=== PATIENT | female | born 2000 | race African-American/Black ===

== ENCOUNTER 2021-04-06 15:18 | Outpatient (REF) | payer OTHER, SELFPAY | END 2021-04-06 15:19 | disposition home or self-care (01) | LOC: HO.LNP 15:18 | PROVIDERS: Visit Provider Physician Assistant | DX: J02.8 Acute pharyngitis due to other specified organisms (principal); B96.89 Other specified bacterial agents as the cause of diseases classified elsewhere | CPT/HCPCS: 87071; 87147 ==

== ENCOUNTER 2021-04-08 15:34 | Emergency (ER) | payer OTHER, SELFPAY | END 2021-04-08 17:32 | disposition left against medical advice (07) | PROVIDERS: Emergency Provider Emergency Medicine | DX: R69 Illness, unspecified (principal) ==

== ENCOUNTER 2021-06-14 16:37 | Emergency (ER) | payer OTHER, SELFPAY ==
[2021-06-14] VITALS (10 sets, daily range): BP systolic 93–152; BP diastolic 50–90; PULSE 67–108; RESP 14–20; TEMP 36.3–37; O2SAT 97–100; BMI 26.2
--- NOTE | ~2021-06-14 | US_ITS ---
EXAMINATION: US OBSTETRICAL ULTRASOUND CLINICAL INFORMATION: Abdominal pain, vaginal bleeding and history of about 4 days ago. Evaluate for retained products of conception. COMPARISON: None. LMP: Unknown. TECHNIQUE: Transabdominal and transvaginal images were obtained utilizing grayscale and color Doppler. FINDINGS: Evaluation is limited secondary to patient's pain. There is an intrauterine gestational sac with a pole but not detected heart rate. A detailed obstetric examination was not obtained. No subchorionic bleed. The cervical region was not assessed by the sterile processing technician. The maternal left ovary was not visualized. The right ovary measures 2.9 x 1.3 x 1.1 cm with preserved flow on color Doppler and normal morphology. Small amount of free fluid. US/US OB pelvic and transvaginal IMPRESSION: Intrauterine gestational sac with a pole. A heart rate was not detected in this examination however, a detailed obstetrical evaluation with measurement of the crown-rump length was not obtained and the age of this remains uncertain. Recommend correlation with quantitative hCG and a short-term follow-up to ensure viability of the . This result was discussed with Kelsie Soria NP at 06/14/2021 7:39 PM and it was ascertained that the content of the report was understood at the time of direct communication.
--- NOTE | ~2021-06-14 | US_ITS ---
EXAMINATION: INTRAOPERATIVE ULTRASOUND CLINICAL INFORMATION: Dilatation and curettage. COMPARISON: Pelvic ultrasound done earlier on same day. TECHNIQUE: Intraoperative images. US/US OB limited FINDINGS/IMPRESSION: Ultrasound guidance was provided for a dilatation and curettage in the OR performed by Dr. Galen Jarrell. A radiologist was not present during the procedure. Please refer to the intraoperative report for additional details.
--- NOTE | 2021-06-14 17:14 | ED.FEMALEGU ---
HPI - Female Genitourinary General Chief complaint: Vaginal Bleeding Stated complaint: vaginal bleed Time Seen by Provider: 06/14/21 16:53 Source: patient Mode of arrival: ambulatory Limitations: no limitations History of Present Illness HPI Narrative: This is a 20 yo f A3 presenting to ed with severe lower abdominal [place] and vaginal bleeding X4 days. Patient tells me that she recently terminated within medications she took mifepristone PO. Since then she has been spotting however the past few days she has been passing thick clots that are bright red. This has never happened to her before she tells me. She reports going through 2 pads per hour over the past 4 days. She reports severe lower abdominal pain that is diffuse. She denies nausea, vomiting, dizziness, headache, vision changes, weakness, chest pain, shortness of breath, fevers, chills. She tells me she does not think this is her typical menses as her menses is typically pain-free. She has some suspicion for STDs/STIs. Would like to get tested today. No history of STD/STI. MD elicited complaint: vaginal bleeding Pertinent past history: other (Recent medical induced ) Onset (ago): day(s) (4) Location of symptoms: suprapubic, LLQ and RLQ Severity: severe Female Urogenital Radiation: Non-Radiating Severity scale (1-10): >10 Quality of pain: cramping Consistency: constant Vaginal discharge: none Vaginal bleeding: heavy, bright red, clots and # pads per hour (2) Exacerbating factors: none Relieving factors: none Associated symptoms: abdominal pain Treatment prior to arrival: none Sexual activity: Yes Related Data Previous Rx's Medication Instructions Recorded amoxicillin 500 mg capsule 500 mg PO TID 7 Days #21 cap 04/06/21 ibuprofen 600 mg tablet 600 mg PO TID 7 Days #21 tab 04/06/21 Allergies Allergy/AdvReac Type Severity Reaction Status Date / Time No Known Allergies Allergy Verified 06/14/21 21:09 Review of Systems Review of Systems: Constitutional : No Fever, No Chills ENT/Mouth : No sore throat, No Rhinorrhea Eyes: No Eye Pain, No Redness Cardiovascular : No Chest Pain, No SOB Respiratory : No Cough, No Sputum, No Wheezing Gastrointestinal : positive Nausea, No Vomiting, No Diarrhea, positive abdominal pain, Genitourinary : positive irregular bleeding, No Dysuria, No Urinary Frequency, positive pelvic pain Musculoskeletal : No Myalgias Skin : No rash Neuro : No Weakness, No Headache Psych : No Anxiety/Panic, No Depression Heme/Lymph: No bruising, No Lymphadenopathy Endocrine : No Polyuria, No Polydipsia All other systems reviewed and are negative Yes all other systems are reviewed and are negative [facility] Past Medical History Attestation statement: The following information was validated with the patient. Source: old records reviewed and nursing notes reviewed Medical History Arthralgia Blurred vision, bilateral Family history of systemic lupus erythematosus (SLE) in mother History of Hx of one miscarriage Family History Family History Mother SLE (systemic lupus erythematosus) Depression Social History Social History Alcohol intake: current Alcohol intake frequency: does not drink Patient Tobacco Use Status: Never used Tobacco Use of substances other than those prescribed or required for medical reasons: Yes Substance Use Type: Marijuana Substance Use Frequency: Daily Advance Directives: No Advance Directives Information Provided: No Physical Exam Vital Signs: Vital Signs: Last Vital Signs Temp 98.6 F 06/14/21 21:06 Pulse 81 06/14/21 21:06 Resp 20 06/14/21 21:06 BP 120/71 06/14/21 21:06 Pulse Ox 100 06/14/21 21:06 BMI result Body Mass Index 26.2 VSS Appearance: Alert.? Oriented X3.? No acute distress.? Head: Normocephalic, atraumatic, no step-offs or deformities Eyes: Pupils equal, round and reactive to light.? ENT: Pharynx normal.? Neck: Normal inspection.? Neck supple.? CVS: Normal heart rate and rhythm.? Pulses normal.? Respiratory: No respiratory distress.? Breath sounds normal.? Abdomen: Soft and + tender to LLQ,RLQ and suprapubic area.? No signs of acute abdomen Skin: Skin warm and dry.? Normal skin color.? Normal skin turgor.? Sensative: + heavy vaginal bleeding bright red, closed cervical os, cervical motion tenderness, no vaginal discharge, no POC noted. Bilateral adenexal tenderness Extremities: No lower extremity edema.? No calf ttp. 5/5 strength to bilateral upper and lower extremities Back: No midline tenderness, no C-spine tenderness, full range of motion, no CVA tenderness bilaterally Neuro: Oriented X 3.? No motor deficit.? No sensory deficit. CN 2-12 intact Course Reevaluation(s) Reevaluation #1: Patient still reports pain despite the 4 mg of morphine. She is noted to be hypotensive, fluids have been given at this time. Type and screen is done and ready in case needed. H&H appears to be low however no need for transfusion at this time. Patient has been bleeding throughout her stay here. She has got about 3-4 pads. She reports that she feels weak. I spoke to OBGYN who will be comming in to do a suction D&C. I also spoke with Radiology who discussed critical results with me. These results were made cleared OBGYN. I educated patient on the circumstances, she has no questions. She agrees to proceed with suction D&C. Patient will be given Dilaudid for pain. Time: 20:38 Reevaluation #2: 200 mg po doxycycline ordered at this time per order of Time: 21:13 Reevaluation #3: Patient brought to short-stay surgery. MDM - Female Genitourinary MDM Narrative Medical decision making narrative: 0 20 yo female presents with menorrhagia, and lower abdominal pain severe. Patient had a medical induced May 18. Has been spotting since then however now reports heavy bleeding for the past 4 days. Physical examination significant for heavy vaginal bleeding bright red, closed cervical os, cervical motion tendernss, no vaginal discharge, no POC noted. Patient has pain to palpation to lower abdomen. Patient noted to be hypotensive however this appears to be her baseline per patient. Unlikely appendicitis. Plan labs, imaging. Will hold on antibiotics for now as there is no source of infection. Medical Records Attestation: I reviewed the patient's medical records. Lab Data Attestation: I reviewed the patient's lab results. Result diagrams: 06/14/21 18:23 06/14/21 18:23 Labs: Lab Results 06/14/21 06/14/21 06/14/21 Range/Units 17:38 18:23 18:23 WBC 6.5 (4.8-10.8) X10*3/uL RBC 3.67 L (4.20-5.50) X10*6/uL Hgb 10.8 L (12.0-16.0) g/dl Hct 31.6 L (37.0-47.0) % MCV 86.1 (80.0-98.0) fL MCH 29.4 (27.0-33.0) pg MCHC 34.2 (31.0-35.0) g/dl RDW 12.2 (11.0-16.0) % Plt Count 224 (160-400) X10*3/uL MPV 10.1 (9.4-12.3) fL Immature Gran % (Auto) 0.5 H (0.0-0.4) % Neut % (Auto) 69.3 (45-73) % Lymph % (Auto) 25.3 (20-40) % [place] % (Auto) 4.4 (2-11) % Eos % (Auto) 0.3 (0-4) % Baso % (Auto) 0.2 (0-2) % Lymph # (Auto) 1.7 (1.2-4.9) X10*3/uL [place] # (Auto) 0.3 (0.1-1.2) X10*3/uL Eos # (Auto) 0.0 (0.0-0.4) X10*3/uL Baso # (Auto) 0.0 (0.0-0.2) X10*3/uL Abs Immat Gran (auto) 0.03 (0.00-0.03) X10*3/uL Absolute Neuts (auto) 4.5 (2.0-8.3) x10*3/uL Absolute Nucleated RBC 0.000 (0.0-0.012) X10*3/uL Nucleated RBC % (auto) 0.0 (0.0-0.2) /100WBC PT (9.9-13.0) SEC INR (0.9-1.1) Sodium 140 (135-145) mmol/L Potassium 4.2 (3.3-5.1) mmol/L Chloride 108 (96-108) mmol/L Carbon Dioxide 25 (22-29) mmol/L Anion Gap 11 L (12-20) BUN 17 H (9-16) mg/dL Creatinine 0.63 (0.5-1.4) mg/dL Estim Creat Clear Calc 119.2 Estimated GFR > 60 Random Glucose 84 (60-115) mg/dL Lactic Acid (0.5-2.0) mmol/L Calcium 9.4 (8.4-10.2) mg/dL Magnesium 2.0 (1.6-2.6) mg/dL Total Bilirubin 0.4 (0.0-1.0) mg/dL AST 13 (5-31) U/L ALT 9 (0-31) U/L Alkaline Phosphatase 59 (39-117) U/L Total Protein 7.1 (6.5-8.0) g/dL Albumin 4.3 (3.5-5.0) g/dL Beta HCG, Quant mIU/mL Urine Color Urine Appearance Urine pH (5.0-8.0) Ur Specific [place] (1.005-1.025) Urine Protein (NEG-TRACE) MG/DL Urine Glucose (UA) (NEG) MG/DL Urine Ketones (NEG) MG/DL Urine Blood (NEG) Urine Nitrite (NEG) Ur Leukocyte Esterase (NEG) Urine RBC (0) /HPF Urine WBC (0-4) /HPF Ur Squamous Epith Cells /LPF Urine Bacteria /LPF Urine Mucus /LPF COVID-19 ([facility]) Negative (Negative) COVID-19 Clin Com See Note Blood Type Antibody Screen 06/14/21 06/14/21 06/14/21 Range/Units 18:23 18:38 19:13 WBC (4.8-10.8) X10*3/uL RBC (4.20-5.50) X10*6/uL Hgb (12.0-16.0) g/dl Hct (37.0-47.0) % MCV (80.0-98.0) fL MCH (27.0-33.0) pg MCHC (31.0-35.0) g/dl RDW (11.0-16.0) % Plt Count (160-400) X10*3/uL MPV (9.4-12.3) fL Immature Gran % (Auto) (0.0-0.4) % Neut % (Auto) (45-73) % Lymph % (Auto) (20-40) % [place] % (Auto) (2-11) % Eos % (Auto) (0-4) % Baso % (Auto) (0-2) % Lymph # (Auto) (1.2-4.9) X10*3/uL [place] # (Auto) (0.1-1.2) X10*3/uL Eos # (Auto) (0.0-0.4) X10*3/uL Baso # (Auto) (0.0-0.2) X10*3/uL Abs Immat Gran (auto) (0.00-0.03) X10*3/uL Absolute Neuts (auto) (2.0-8.3) x10*3/uL Absolute Nucleated RBC (0.0-0.012) X10*3/uL Nucleated RBC % (auto) (0.0-0.2) /100WBC PT (9.9-13.0) SEC INR (0.9-1.1) Sodium (135-145) mmol/L Potassium (3.3-5.1) mmol/L Chloride (96-108) mmol/L Carbon Dioxide (22-29) mmol/L Anion Gap (12-20) BUN (9-16) mg/dL Creatinine (0.5-1.4) mg/dL Estim Creat Clear Calc Estimated GFR Random Glucose (60-115) mg/dL Lactic Acid (0.5-2.0) mmol/L Calcium (8.4-10.2) mg/dL Magnesium (1.6-2.6) mg/dL Total Bilirubin (0.0-1.0) mg/dL AST (5-31) U/L ALT (0-31) U/L Alkaline Phosphatase (39-117) U/L Total Protein (6.5-8.0) g/dL Albumin (3.5-5.0) g/dL Beta HCG, Quant 481 mIU/mL Urine Color RED A Urine Appearance CLOUDY Urine pH 6.0 (5.0-8.0) Ur Specific [place] >= 1.030 H (1.005-1.025) Urine Protein 2+ H (NEG-TRACE) MG/DL Urine Glucose (UA) NEG (NEG) MG/DL Urine Ketones 15 (NEG) MG/DL Urine Blood 3+ H (NEG) Urine Nitrite NEG (NEG) Ur Leukocyte Esterase TRACE H (NEG) Urine RBC 50-75 H (0) /HPF Urine WBC 1-4 (0-4) /HPF Ur Squamous Epith Cells TRACE /LPF Urine Bacteria TRACE /LPF Urine Mucus TRACE /LPF COVID-19 ([facility]) (Negative) COVID-19 Clin Com Blood Type B Positive Antibody Screen NEGATIVE 06/14/21 06/14/21 Range/Units 20:25 20:25 WBC (4.8-10.8) X10*3/uL RBC (4.20-5.50) X10*6/uL Hgb (12.0-16.0) g/dl Hct (37.0-47.0) % MCV (80.0-98.0) fL MCH (27.0-33.0) pg MCHC (31.0-35.0) g/dl RDW (11.0-16.0) % Plt Count (160-400) X10*3/uL MPV (9.4-12.3) fL Immature Gran % (Auto) (0.0-0.4) % Neut % (Auto) (45-73) % Lymph % (Auto) (20-40) % [place] % (Auto) (2-11) % Eos % (Auto) (0-4) % Baso % (Auto) (0-2) % Lymph # (Auto) (1.2-4.9) X10*3/uL [place] # (Auto) (0.1-1.2) X10*3/uL Eos # (Auto) (0.0-0.4) X10*3/uL Baso # (Auto) (0.0-0.2) X10*3/uL Abs Immat Gran (auto) (0.00-0.03) X10*3/uL Absolute Neuts (auto) (2.0-8.3) x10*3/uL Absolute Nucleated RBC (0.0-0.012) X10*3/uL Nucleated RBC % (auto) (0.0-0.2) /100WBC PT 12.8 (9.9-13.0) SEC INR 1.1 (0.9-1.1) Sodium (135-145) mmol/L Potassium (3.3-5.1) mmol/L Chloride (96-108) mmol/L Carbon Dioxide (22-29) mmol/L Anion Gap (12-20) BUN (9-16) mg/dL Creatinine (0.5-1.4) mg/dL Estim Creat Clear Calc Estimated GFR Random Glucose (60-115) mg/dL Lactic Acid 1.4 (0.5-2.0) mmol/L Calcium (8.4-10.2) mg/dL Magnesium (1.6-2.6) mg/dL Total Bilirubin (0.0-1.0) mg/dL AST (5-31) U/L ALT (0-31) U/L Alkaline Phosphatase (39-117) U/L Total Protein (6.5-8.0) g/dL Albumin (3.5-5.0) g/dL Beta HCG, Quant mIU/mL Urine Color Urine Appearance Urine pH (5.0-8.0) Ur Specific [place] (1.005-1.025) Urine Protein (NEG-TRACE) MG/DL Urine Glucose (UA) (NEG) MG/DL Urine Ketones (NEG) MG/DL Urine Blood (NEG) Urine Nitrite (NEG) Ur Leukocyte Esterase (NEG) Urine RBC (0) /HPF Urine WBC (0-4) /HPF Ur Squamous Epith Cells /LPF Urine Bacteria /LPF Urine Mucus /LPF COVID-19 ([facility]) (Negative) COVID-19 Clin Com Blood Type Antibody Screen Critical Care Time Critical Care Time Critical Care Time: Yes Total Critical Care Time: 35 Attestation: I attest to this time spent taking care of the patient obtaining history, physical, reviewing labs, imaging, speaking to specialist, Discharge Plan Discharge Clinical Impression: Incomplete , Abdominal pain, Nausea Patient Disposition: Admitted As Inpatient
[2021-06-14 17:59] LABS: COVID-19 Test Negative (Negative)
[2021-06-14 18:29] LABS: MANUAL DIFF FLAG NO
[2021-06-14] MEDS: Morphine Sulfate 4 MG/ML CARTRIDGE IVPUSH (18:29)
--- NOTE | 2021-06-14 18:31 | PC.NURSE ---
pt alert and oriented, skin appropriate for ethnicity, respirations even and unlabored, pt reports lower abd pain that comes and goes, 8/10 and heavy vaginal bleeding with blood clots, vs stable
[2021-06-14 18:32] LABS: Basophils Percent Auto 0.2 % (0-2); Eosinophils Percent Auto 0.3 % (0-4); Hematocrit 31.6 % (37.0-47.0); Hemoglobin 10.8 g/dl (12.0-16.0); Imm Gran Abs Auto 0.03 X10*3/uL (0.00-0.03); Imm Gran Pct Auto 0.5 % (0.0-0.4); Lymphocytes Absolute Auto 1.7 X10*3/uL (1.2-4.9); Lymphocytes Percent Auto 25.3 % (20-40); Mean Corpuscular HGB Conc 34.2 g/dl (31.0-35.0); Mean Corpuscular Hemoglobin 29.4 pg (27.0-33.0); Mean Corpuscular Volume 86.1 fL (80.0-98.0); Mean Platelet Volume 10.1 fL (9.4-12.3); Monocytes Absolute Auto 0.3 X10*3/uL (0.1-1.2); Monocytes Percent Auto 4.4 % (2-11); Neutrophils Absolute Auto 4.5 x10*3/uL (2.0-8.3); Neutrophils Percent Auto 69.3 % (45-73); Platelet Count 224 X10*3/uL (160-400); Red Blood Count 3.67 X10*6/uL (4.20-5.50); Red Cell Distribution Width 12.2 % (11.0-16.0); White Blood Count 6.5 X10*3/uL (4.8-10.8)
[2021-06-14 18:46] LABS: Alanine Aminotransferase 9 U/L (0-31); Albumin Level 4.3 g/dL (3.5-5.0); Alkaline Phosphatase 59 U/L (39-117); Anion Gap 11 (12-20); Aspartate Amino Transferase 13 U/L (5-31); Bilirubin Total 0.4 mg/dL (0.0-1.0); Blood Urea Nitrogen 17 mg/dL (9-16); Calcium 9.4 mg/dL (8.4-10.2); Carbon Dioxide 25 mmol/L (22-29); Chloride 108 mmol/L (96-108); Creatinine Clr Calc Pharmacy 119.2; Estimated Glomerular Filt Rate > 60; Glucose Random 84 mg/dL (60-115); Potassium 4.2 mmol/L (3.3-5.1); Sodium 140 mmol/L (135-145); Total Protein 7.1 g/dL (6.5-8.0)
[2021-06-14 18:50] LABS: HCG Quantitative 481 mIU/mL
[2021-06-14 19:19] LABS: Appearance Urine CLOUDY; Color Urine RED; Glucose Urine UA NEG (NEG); Leukocyte Esterase Urine TRACE (NEG); Nitrite Urine NEG (NEG); Specific Gravity - Urine >= 1.030 (1.005-1.025); UACC Culture Trigger YES; Urine Blood 3+ (NEG); Urine Ketones 15 MG/DL (NEG); Urine Protein 2+ MG/DL (NEG-TRACE)
[2021-06-14 19:27] LABS: RBC Urine 50-75 /HPF (0)
[2021-06-14 19:28] LABS: Bacteria Urine TRACE /LPF; Mucus Urine TRACE /LPF; Squamous Epithelial Cell Urine TRACE /LPF
--- NOTE | 2021-06-14 20:32 | PM.GYNCN ---
PERSONAL PROTECTION SPECIALIST - CN: HPI Data of Consult Consult date: 06/14/21 Primary Care Provider: mAy Bell MD Consult Narrative Narrative: I was consulted on Yeimy Hartman who is a 20 year old female presented the emergency room complaining of heavy vaginal bleeding abdominal cramps of 4 days duration. [facility] dose of Mifeprostone followed by 4 tablets of misoprostol orally, this was followed by abdominal cramping and vaginal bleeding that stopped afterwards, the Patient thought she had complete miscarriage till 4 days ago when she started having heavy vaginal bleeding associated pelvic cramps, no fever or chills, no nausea or vomiting or any other symptoms. Arrival to the emergency room the patient had an episode of hypotension, corrected by IV hydration. cc:: CC: OB [facility] Past Medical History Medical History Arthralgia Blurred vision, bilateral Family history of systemic lupus erythematosus (SLE) in mother History of Hx of one miscarriage Family History Family History Mother SLE (systemic lupus erythematosus) Depression Social History Social History Alcohol intake: current Alcohol intake frequency: does not drink Patient Tobacco Use Status: Never used Tobacco Use of substances other than those prescribed or required for medical reasons: Yes Substance Use Type: Marijuana Substance Use Frequency: Daily Advance Directives: No Advance Directives Information Provided: No Meds Allergies Allergy/AdvReac Type Severity Reaction Status Date / Time No Known Allergies Allergy Verified 06/14/21 21:09 Active Medications: Current Medications Sodium Chloride (Ns) 1,000 mls @ 999 mls/hr IV .Q1H1M SHIVANI Stop: 06/14/21 21:30 PERSONAL PROTECTION SPECIALIST Physical Exam Vitals Vital signs: Temp Pulse Resp BP Pulse Ox 98.5 F 73 14 93/50 L 99 06/14/21 16:46 06/14/21 19:49 06/14/21 19:49 06/14/21 19:49 06/14/21 19:49 BMI result Body Mass Index 26.2 Abdomen Auscultation/Inspection/Palpation: Normal bowel sounds and Soft Female Genitalia (Pelvic) Bladder/Urethra: Normal meatus Vulva: No lesions Vagina: Nontender Uterus: Enlarged Adnexa/Parametria: Adnexal Tenderness: None and Adnexal Mass: None Additional Comments: Cervix open with moderate amount of vaginal bleeding PERSONAL PROTECTION SPECIALIST - Results Labs CBC & Chem 7: 06/14/21 18:23 06/14/21 18:23 Labs: Short CBC 06/14/21 Range/Units 18:23 WBC 6.5 (4.8-10.8) X10*3/uL Hgb 10.8 L (12.0-16.0) g/dl Hct 31.6 L (37.0-47.0) % Plt Count 224 (160-400) X10*3/uL BMP 06/14/21 18:23 Sodium 140 Potassium 4.2 Chloride 108 Carbon Dioxide 25 BUN 17 H Creatinine 0.63 Calcium 9.4 Liver Function 06/14/21 Range/Units 18:23 Total Bilirubin 0.4 (0.0-1.0) mg/dL AST 13 (5-31) U/L ALT 9 (0-31) U/L Alkaline Phosphatase 59 (39-117) U/L Albumin 4.3 (3.5-5.0) g/dL Urine 06/14/21 Range/Units 19:13 Urine Color RED A Urine Appearance CLOUDY Urine pH 6.0 (5.0-8.0) Ur Specific [place] >= 1.030 H (1.005-1.025) Urine Protein 2+ H (NEG-TRACE) MG/DL Urine Glucose (UA) NEG (NEG) MG/DL Antibody Screen Antibody Screen NEGATIVE 06/14/21 18:38 Imaging US - abdomen: Radiologist's impression: ITS Impressions Pelvic/Transvag US 06/14/21 18:01 IMPRESSION: Intrauterine gestational sac with a pole. A heart rate was not detected in this examination however, a detailed obstetrical evaluation with measurement of the crown-rump length was not obtained and the age of this remains uncertain. Recommend correlation with quantitative hCG and a short-term follow-up to ensure viability of the . This result was discussed with Kelsie Soria NP at 06/14/2021 7:39 PM and it was ascertained that the content of the report was understood at the time of direct communication. Assessment and Plan (1) Incomplete : Status: Acute Discussed with the patient the findings, active bleeding with evidence of gestational sac in the uterus by ultrasound with no heart rate, consistent with incomplete , since the patient is actively bleeding, had an episode of hypotension, recommended suction D&C under ultrasound guidance. All the pros, cons and risks and benefits of the procedure were discussed with the patient. Risks discussed with the patient include but not limited to, bleeding, infection, risk of uterine perforation, possible injury to bladder, blood vessels, ureter, possible need for blood transfusion with all its risks, possible uterine adhesions affecting negatively future fertility, possible laparoscopy and/or laparotomy or hysterectomy. All questions answered, the patient verbalized understanding and agreed with the plan. Doxycycline 200 mg p.o. preop for infection prophylaxis given to the patient.
[2021-06-14 20:38] LABS: INTERNATIONAL NORM RATIO 1.1 (0.9-1.1); Prothrombin Time 12.8 SEC (9.9-13.0)
[2021-06-14 20:43] LABS: Lactic Acid 1.4 mmol/L (0.5-2.0)
[2021-06-14] MEDS: 0.9 % Sodium Chloride 1,000 ML 999 ML IV (20:58)
[2021-06-14] MEDS: ondansetron HCL 4 MG/2 ML VIAL IVPUSH ×2 (20:58→23:08)
[2021-06-14] MEDS: HYDROmorphone HCl 0.5 MG/0.5 ML SYRINGE IVPUSH (20:59)
--- NOTE | 2021-06-14 21:07 | PC.NURSE ---
Dr Jarrell at bedside, performed vaginal exam with this RN and Imelda PCT at bedside. Pt's mother also at bedside. Dr Jarrell discussing plan for D&C with pt at this time. VSS. Pt NSR on conventions reservationist.
--- NOTE | 2021-06-14 21:33 | P.CONAN_ITS ---
[facility] Active Problems Active Problems: All Active Problems (Updated 06/14/21 @ 20:33 by Galen Jarrell MD) Incomplete (Acute) Acute bacterial pharyngitis (Acute) Blurred vision, bilateral (Acute) Family history of systemic lupus erythematosus (SLE) in mother (Acute) Arthralgia (Acute) Past Medical History Medical History Arthralgia Blurred vision, bilateral Family history of systemic lupus erythematosus (SLE) in mother History of Hx of one miscarriage Family History Family History Mother SLE (systemic lupus erythematosus) Depression Family history of problems with anesthesia: No Surgical History History of Problems with Anesthesia: No Social History Social History Alcohol intake: current Alcohol intake frequency: does not drink Patient Tobacco Use Status: Never used Tobacco Use of substances other than those prescribed or required for medical reasons: Yes Substance Use Type: Marijuana Substance Use Frequency: Daily Advance Directives: No Advance Directives Information Provided: No Meds Allergies Allergy/AdvReac Type Severity Reaction Status Date / Time No Known Allergies Allergy Verified 06/14/21 21:09 Exam Exam Date and Time: June 14, 20212132 Height,Weight and Vital Signs: Height 5 ft 1 in Weight 63.049 kg Last Vital Signs Temp 98.6 F 06/14/21 21:06 Pulse 81 06/14/21 21:06 Resp 20 06/14/21 21:06 BP 120/71 06/14/21 21:06 Pulse Ox 100 06/14/21 21:06 Pertinent Lab Results Pertinent Lab Results: Laboratory Tests 06/14/21 06/14/21 06/14/21 17:38 18:23 18:23 WBC 6.5 RBC 3.67 L Hgb 10.8 L Hct 31.6 L MCV 86.1 MCH 29.4 MCHC 34.2 RDW 12.2 Plt Count 224 MPV 10.1 Immature Gran % (Auto) 0.5 H Neut % (Auto) 69.3 Lymph % (Auto) 25.3 [place] % (Auto) 4.4 Eos % (Auto) 0.3 Baso % (Auto) 0.2 Lymph # (Auto) 1.7 [place] # (Auto) 0.3 Eos # (Auto) 0.0 Baso # (Auto) 0.0 Abs Immat Gran (auto) 0.03 Absolute Neuts (auto) 4.5 Absolute Nucleated RBC 0.000 Nucleated RBC % (auto) 0.0 PT INR Sodium 140 Potassium 4.2 Chloride 108 Carbon Dioxide 25 Anion Gap 11 L BUN 17 H Creatinine 0.63 Estim Creat Clear Calc 119.2 Estimated GFR > 60 Random Glucose 84 Lactic Acid Calcium 9.4 Magnesium 2.0 Total Bilirubin 0.4 AST 13 ALT 9 Alkaline Phosphatase 59 Total Protein 7.1 Albumin 4.3 Beta HCG, Quant Urine Color Urine Appearance Urine pH Ur Specific [place] Urine Protein Urine Glucose (UA) Urine Ketones Urine Blood Urine Nitrite Ur Leukocyte Esterase Urine RBC Urine WBC Ur Squamous Epith Cells Urine Bacteria Urine Mucus COVID-19 ([facility]) Negative COVID-19 Clin Com See Note Blood Type Antibody Screen 06/14/21 06/14/21 06/14/21 18:23 18:38 19:13 WBC RBC Hgb Hct MCV MCH MCHC RDW Plt Count MPV Immature Gran % (Auto) Neut % (Auto) Lymph % (Auto) [place] % (Auto) Eos % (Auto) Baso % (Auto) Lymph # (Auto) [place] # (Auto) Eos # (Auto) Baso # (Auto) Abs Immat Gran (auto) Absolute Neuts (auto) Absolute Nucleated RBC Nucleated RBC % (auto) PT INR Sodium Potassium Chloride Carbon Dioxide Anion Gap BUN Creatinine Estim Creat Clear Calc Estimated GFR Random Glucose Lactic Acid Calcium Magnesium Total Bilirubin AST ALT Alkaline Phosphatase Total Protein Albumin Beta HCG, Quant 481 Urine Color RED A Urine Appearance CLOUDY Urine pH 6.0 Ur Specific [place] >= 1.030 H Urine Protein 2+ H Urine Glucose (UA) NEG Urine Ketones 15 Urine Blood 3+ H Urine Nitrite NEG Ur Leukocyte Esterase TRACE H Urine RBC 50-75 H Urine WBC 1-4 Ur Squamous Epith Cells TRACE Urine Bacteria TRACE Urine Mucus TRACE COVID-19 ([facility]) COVID-19 Clin Com Blood Type B Positive Antibody Screen NEGATIVE 06/14/21 06/14/21 20:25 20:25 WBC RBC Hgb Hct MCV MCH MCHC RDW Plt Count MPV Immature Gran % (Auto) Neut % (Auto) Lymph % (Auto) [place] % (Auto) Eos % (Auto) Baso % (Auto) Lymph # (Auto) [place] # (Auto) Eos # (Auto) Baso # (Auto) Abs Immat Gran (auto) Absolute Neuts (auto) Absolute Nucleated RBC Nucleated RBC % (auto) PT 12.8 INR 1.1 Sodium Potassium Chloride Carbon Dioxide Anion Gap BUN Creatinine Estim Creat Clear Calc Estimated GFR Random Glucose Lactic Acid 1.4 Calcium Magnesium Total Bilirubin AST ALT Alkaline Phosphatase Total Protein Albumin Beta HCG, Quant Urine Color Urine Appearance Urine pH Ur Specific [place] Urine Protein Urine Glucose (UA) Urine Ketones Urine Blood Urine Nitrite Ur Leukocyte Esterase Urine RBC Urine WBC Ur Squamous Epith Cells Urine Bacteria Urine Mucus COVID-19 ([facility]) COVID-19 Clin Com Blood Type Antibody Screen Airway Mallampati Class: II TM Dist: >3cm Neck ROM: Full Assessment and Plan Assessment Anesthesia Assessment: Anesthesia Plan Discussed and Chart Reviewed Final Anesthetic Review Family History of Problems with Anesthesia: No History of Problems with Anesthesia: No NPO: Yes ASA Class: II and Emergency Final Preanesthetic Review: No Changes in Pt Med Stat, Meds/Allgs Chart Reviewed, Consent Obtained/Reviewed and Anes Risks/Benef Reviewed Patient Risk: Intermediate Procedure Risk: Low Anesthetic Plan Anesthetic Plan: GA Disposition: Standard PACU
--- NOTE | 2021-06-14 22:31 | PM.OP ---
Brief Operative Note Date of Service: 06/14/21 Pre-op diagnosis: Torsion Post-op diagnosis: same Procedure: Suction D&C Surgeon: Galen Jarrell MD Anesthesia: MAC Was an Supervisor [employer] Annealing used for this Procedure?: No Estimated blood loss (mL): 20 Pathology: other (Products of conception) Condition: stable Disposition: PACU
--- NOTE | 2021-06-14 22:32 | W.PM.OPN ---
Operative Note Operative Note Date of Service: 06/14/21 Narrative: Preop diagnosis: incomplete Operation: suction D and C Postop diagnosis: The same EBL: Minimal Anesthesia: MAC Fishing Rod Marker: None Pathology: Products of conception Procedure: The patient was put in a dorsal distal mid position was scrubbed and draped in the usual sterile fashion. A sterile speculum was inserted inside the patient's vagina the anterior lip of the cervix was grasped with single-tooth tenaculum the cervix was dilated up to 7 mm. Under ultrasonographic guidance flexible 7. Suction tip was introduced inside the patient ran cavity till the fundus was hit then turning the suction 360 degrees around products of conception was sucked out toward the uterine cavity. The suction tip was taken out of the patient uterine cavity sharp curettings was followed in 4 quadrants of the uterus till a gritty feeling was felt. The suction tip was reintroduced under ultrasonographic guidance and intrauterine blood was sucked. The suction tip was taken out. Single-tooth tenaculum was removed hemostasis assured using pressure. The patient tolerated the procedure well and was transferred to the PACU in a stable condition.
[2021-06-15 11:58] LABS: BV Int Neg Control Negative (Negative); BV Int Pos Control Positive (Positive)
[2021-06-15 13:34] LABS: CT PCR NOT DETECTED (Not Detect.); NG PCR NOT DETECTED (Not Detect.)
== END 2021-06-15 01:01 | disposition home or self-care (01) ==
PROVIDERS: Obstetrics & Gynecology; Physician Assistant; Emergency Provider Internal Medicine; PCP Internal Medicine
PROC: (CPT 59812; principal; 2021-06-14 21:30)
DX: O03.4 Incomplete spontaneous abortion without complication (principal); N92.0 Excessive and frequent menstruation with regular cycle; R10.32 Left lower quadrant pain; R10.31 Right lower quadrant pain; R11.0 Nausea; F12.90 Cannabis use, unspecified, uncomplicated; Z20.822 Contact with and (suspected) exposure to COVID-19; Z79.899 Other long term (current) drug therapy
CPT/HCPCS: 59812; 36415; 76801; 76815; 76817; 80053; 81001; 83605; 83735; 84702; 85025; 85610; 86850; 86900; 86901; 87040; 87086; 87480; 87491; 87510; 87591; 87635; 87660; 88305; 96361; 96374; 96375; 99285; 99291; J1100; J1170; J2250; J2270; J2405; J2590; J3010

== ENCOUNTER 2021-07-01 11:36 | Outpatient (REF) | payer OTHER, SELFPAY ==
[2021-07-01 14:26] LABS: HCG Quantitative 3 mIU/mL
== END 2021-07-01 11:37 | disposition home or self-care (01) ==
LOC: HO.LAB 11:36
PROVIDERS: PCP Internal Medicine; Visit Provider Obstetrics & Gynecology
DX: O03.4 Incomplete spontaneous abortion without complication (principal)
CPT/HCPCS: 36415; 84702; 99212

== ENCOUNTER 2021-10-01 18:05 | Emergency (ER) | payer OTHER, SELFPAY | END 2021-10-01 18:40 | disposition left against medical advice (07) | PROVIDERS: Emergency Provider Emergency Medicine | DX: R10.9 Unspecified abdominal pain (principal) ==

== ENCOUNTER 2022-01-16 09:55 | Emergency (ER) | payer OTHER, SELFPAY ==
[2022-01-16 10:18] VITALS: BP 126/58; PULSE 68; RESP 18; TEMP 36.4; O2SAT 100; BMI 26.9
[2022-01-16 10:35] LABS: Basophils Percent Auto 0.1 % (0-2); Eosinophils Absolute Auto 0.1 X10*3/uL (0.0-0.4); Hematocrit 36.3 % (37.0-47.0); Hemoglobin 12.1 g/dl (12.0-16.0); Imm Gran Abs Auto 0.02 X10*3/uL (0.00-0.03); Imm Gran Pct Auto 0.3 % (0.0-0.4); Lymphocytes Absolute Auto 1.4 X10*3/uL (1.2-4.9); MANUAL DIFF FLAG NO; Mean Corpuscular HGB Conc 33.3 g/dl (31.0-35.0); Mean Corpuscular Hemoglobin 29.2 pg (27.0-33.0); Mean Corpuscular Volume 87.5 fL (80.0-98.0); Mean Platelet Volume 10.1 fL (9.4-12.3); Monocytes Absolute Auto 0.3 X10*3/uL (0.1-1.2); Monocytes Percent Auto 4.5 % (2-11); Neutrophils Absolute Auto 5.1 x10*3/uL (2.0-8.3); Neutrophils Percent Auto 74.1 % (45-73); Platelet Count 224 X10*3/uL (160-400); Red Blood Count 4.15 X10*6/uL (4.20-5.50); White Blood Count 6.9 X10*3/uL (4.8-10.8)
[2022-01-16 10:36] LABS: UPreg QC Valid YES
[2022-01-16 10:37] LABS: Urine Pregnancy NEGATIVE (NEGATIVE)
[2022-01-16 10:38] LABS: Appearance Urine Clear; Color Urine Yellow; Glucose Urine UA Negative (Negative); Leukocyte Esterase Urine Negative (Negative); Nitrite Urine Negative (Negative); PH 8.5 (5.0-9.0); Urine Blood Negative (Negative); Urine Ketones Negative (Negative); Urine Protein Trace mg/dL (Neg-Trace)
[2022-01-16 10:53] LABS: COVID-19 Test Negative (Negative)
[2022-01-16 10:56] LABS: Alanine Aminotransferase 11 U/L (0-31); Albumin Level 4.6 g/dL (3.5-5.0); Alkaline Phosphatase 65 U/L (39-117); Anion Gap 14 (12-20); Aspartate Amino Transferase 16 U/L (5-31); Bilirubin Direct 0.2 mg/dL (0.0-0.5); Bilirubin Total 0.2 mg/dL (0.0-1.0); Blood Urea Nitrogen 8 mg/dL (9-16); Carbon Dioxide 26 mmol/L (22-29); Chloride 104 mmol/L (96-108); Creatinine Clr Calc Pharmacy 120.5; Estimated Glomerular Filt Rate > 60; Glucose Random 85 mg/dL (60-115); Potassium 4.7 mmol/L (3.3-5.1); Sodium 139 mmol/L (135-145); Total Protein 7.5 g/dL (6.5-8.0)
== END 2022-01-16 16:42 | disposition left against medical advice (07) ==
PROVIDERS: Emergency Provider Emergency Medicine
DX: R11.10 Vomiting, unspecified (principal); Z20.822 Contact with and (suspected) exposure to COVID-19; R10.9 Unspecified abdominal pain
CPT/HCPCS: 36415; 80048; 80076; 81003; 81025; 85025; 87635; 99282; 99283

== ENCOUNTER 2022-02-19 05:43 | Emergency (ER) | payer OTHER, SELFPAY ==
[2022-02-19 05:45] VITALS: BP 105/89; PULSE 78; RESP 20; TEMP 36.6; O2SAT 100; BMI 26.9
[2022-02-19 06:04] LABS: MANUAL DIFF FLAG NO
[2022-02-19 06:16] LABS: COVID-19 Test Negative (Negative)
[2022-02-19 06:23] LABS: Anion Gap 15 (12-20); Blood Urea Nitrogen 10 mg/dL (9-16); Calcium 9.2 mg/dL (8.4-10.2); Carbon Dioxide 22 mmol/L (22-29); Chloride 106 mmol/L (96-108); Creatinine Clr Calc Pharmacy 115.2; Estimated Glomerular Filt Rate > 60; Glucose Random 126 mg/dL (60-115); Potassium 4.3 mmol/L (3.3-5.1); Sodium 139 mmol/L (135-145)
[2022-02-19 06:31] LABS: Basophils Percent Auto 0.2 % (0-2); Eosinophils Percent Auto 0.4 % (0-4); Hematocrit 35.5 % (37.0-47.0); Imm Gran Abs Auto 0.03 X10*3/uL (0.00-0.03); Imm Gran Pct Auto 0.3 % (0.0-0.4); Lymphocytes Absolute Auto 1.6 X10*3/uL (1.2-4.9); Lymphocytes Percent Auto 17.5 % (20-40); Mean Corpuscular HGB Conc 33.8 g/dl (31.0-35.0); Mean Corpuscular Hemoglobin 29.1 pg (27.0-33.0); Mean Corpuscular Volume 86.2 fL (80.0-98.0); Mean Platelet Volume 10.9 fL (9.4-12.3); Monocytes Absolute Auto 0.4 X10*3/uL (0.1-1.2); Monocytes Percent Auto 4.1 % (2-11); Neutrophils Absolute Auto 7.2 x10*3/uL (2.0-8.3); Neutrophils Percent Auto 77.5 % (45-73); Platelet Count 205 X10*3/uL (160-400); Red Blood Count 4.12 X10*6/uL (4.20-5.50); Red Cell Distribution Width 12.1 % (11.0-16.0); White Blood Count 9.3 X10*3/uL (4.8-10.8)
--- NOTE | 2022-02-19 06:39 | ED.NAVMDI ---
HPI - Nausea/Vomiting/Diarrhea General Chief complaint: Abdominal Pain Stated complaint: abd pain, n/v Time Seen by Provider: 02/19/22 06:37 Source: patient and family Mode of arrival: ambulatory Limitations: no limitations History of Present Illness HPI Narrative: 21 yo female no sig PMH here with c/o abrupt onset diffuse abdominal pain and vomiting at 1am. Did eat taco fish for lunch but had normal dinner. She smokes THC daily. States this has never happened to her before. no sick contacts, no travel, no diarrhea. MD elicited complaint: nausea, vomiting and abdominal pain Onset (ago): hour(s) (1am) Description of vomiting: food contents and watery Associated nausea: Yes Associated abdominal pain: Yes Location of pain: diffuse and epigastric Radiation: diffuse Pain consistency: constant Severity: severe Quality: stabbing Exacerbating factors: eating Relieving factors: none Associated symptoms: loss of appetite, malaise and nausea/vomiting Related Data Previous Rx's Medication Instructions Recorded ibuprofen 600 mg tablet 600 mg PO TID 7 days #21 tabs 04/06/21 famotidine 20 mg tablet (Pepcid) 20 mg PO DAILY PRN abdominal 02/19/22 discomfort #30 tabs ondansetron 4 mg disintegrating 4 mg PO Q8H PRN nausea and 02/19/22 tablet vomiting #20 tabs Allergies Allergy/AdvReac Type Severity Reaction Status Date / Time No Known Allergies Allergy Verified 07/01/21 11:48 Review of Systems Review of Systems: Constitutional : No Weight loss, No Fever, No Chills ENT/Mouth : No sore throat, No Rhinorrhea Eyes: No Swelling, No Redness Cardiovascular : No Chest Pain, No SOB, NoEdema Respiratory : No Cough, No Sputum, No Wheezing Gastrointestinal : Positive Nausea, Positive Vomiting, no Diarrhea, positive abdominal Pain, No Hematochezia, No Melena Genitourinary : No Dysuria, No Urinary Frequency, No Hematuria, No Urgency Musculoskeletal : No joint pain, No Myalgias, No Joint Swelling Skin : No Skin Lesions, No rash Neuro : No Weakness, No Numbness, No Dizziness, No Headache Psych : No Anxiety/Panic, No Depression Heme/Lymph: No Bruising, No Lymphadenopathy Endocrine : No Polyuria, No Polydipsia All other systems reviewed and are negative. Gastrointestinal: Gastrointestinal: Reports nausea PMFSH Past Medical History Medical History Arthralgia Blurred vision, bilateral Family history of systemic lupus erythematosus (SLE) in mother History of Hx of one miscarriage Surgical History History of dilatation and curettage Hx of section Family History Family History Mother SLE (systemic lupus erythematosus) Depression Social History Social History Alcohol intake: current Alcohol intake frequency: does not drink Patient Tobacco Use Status: Never used Tobacco Smoked in Last 30 Days: No Use of substances other than those prescribed or required for medical reasons: Yes Substance Use Type: Marijuana Advance Directives: No Advance Directives Information Provided: Yes Physical Exam Vital Signs: Vital Signs: Last Vital Signs Temp 97.6 F 02/19/22 07:01 Pulse 60 02/19/22 07:01 Resp 14 02/19/22 07:01 BP 110/60 02/19/22 07:01 Pulse Ox 100 02/19/22 07:01 O2 Del Method 02/19/22 07:01 BMI result Body Mass Index 26.9 Appearance: Alert. Oriented X3. anxious active vomiting, mild acute distress. Eyes: Pupils equal, round and reactive to light. ENT: Pharynx normal. Neck: Normal inspection. Neck supple. CVS: Normal heart rate and rhythm. Pulses normal. Respiratory: No respiratory distress. Breath sounds normal. Abdomen: Soft and moderate ttp in epigastric region of abdomen, no emanuel's sign Skin: Skin warm and dry. Normal skin color. Normal skin turgor. Extremities: No lower extremity edema. No calf ttp Neuro: Oriented X 3. No motor deficit. No sensory deficit. Course Course Course Narrative: repeat vomiting, IM haldol ordered feels better stable for DC tolerating PO MDM - Nausea/Vomiting/Diarrhea MDM Narrative Medical decision making narrative: 21 yo female hx of THC use here with upper abdominal pain and n/v no other exposures or risk factors at this time will need labs, IVF, IV reglan and benadryl, once more calm from vomiting will reassess abdomen again. Dispo per results and findings. Lab Data Result diagrams: 02/19/22 05:59 02/19/22 05:59 Labs: Lab Results 02/19/22 02/19/22 02/19/22 Range/Units 05:59 05:59 05:59 WBC 9.3 (4.8-10.8) X10*3/uL RBC 4.12 L (4.20-5.50) X10*6/uL Hgb 12.0 (12.0-16.0) g/dl Hct 35.5 L (37.0-47.0) % MCV 86.2 (80.0-98.0) fL MCH 29.1 (27.0-33.0) pg MCHC 33.8 (31.0-35.0) g/dl RDW 12.1 (11.0-16.0) % Plt Count 205 (160-400) X10*3/uL MPV 10.9 (9.4-12.3) fL Immature Gran % (Auto) 0.3 (0.0-0.4) % Neut % (Auto) 77.5 H (45-73) % Lymph % (Auto) 17.5 L (20-40) % [place] % (Auto) 4.1 (2-11) % Eos % (Auto) 0.4 (0-4) % Baso % (Auto) 0.2 (0-2) % Lymph # (Auto) 1.6 (1.2-4.9) X10*3/uL [place] # (Auto) 0.4 (0.1-1.2) X10*3/uL Eos # (Auto) 0.0 (0.0-0.4) X10*3/uL Baso # (Auto) 0.0 (0.0-0.2) X10*3/uL Abs Immat Gran (auto) 0.03 (0.00-0.03) X10*3/uL Absolute Neuts (auto) 7.2 (2.0-8.3) x10*3/uL Absolute Nucleated RBC 0.000 (0.0-0.012) X10*3/uL Nucleated RBC % (auto) 0.0 (0.0-0.2) /100WBC Sodium 139 (135-145) mmol/L Potassium 4.3 (3.3-5.1) mmol/L Chloride 106 (96-108) mmol/L Carbon Dioxide 22 (22-29) mmol/L Anion Gap 15 (12-20) BUN 10 (9-16) mg/dL Creatinine 0.68 (0.5-1.4) mg/dL Estim Creat Clear Calc 115.2 Estimated GFR > 60 Random Glucose 126 H (60-115) mg/dL Calcium 9.2 (8.4-10.2) mg/dL Total Bilirubin 0.2 (0.0-1.0) mg/dL Direct Bilirubin 0.2 (0.0-0.5) mg/dL AST 17 (5-31) U/L ALT 14 (0-31) U/L Alkaline Phosphatase 60 (39-117) U/L Total Protein 7.4 (6.5-8.0) g/dL Albumin 4.6 (3.5-5.0) g/dL Lipase 14 (8-78) U/L Beta HCG, Quant < 2 mIU/mL Ethyl Alcohol < 10 mg/dL COVID-19 ([facility]) Negative (Negative) COVID-19 Clin Com See Note Discharge Plan Discharge Clinical Impression: Vomiting Qualifiers: Vomiting type: unspecified Nausea presence: with nausea Qualified Code(s): R11.2 - Nausea with vomiting, unspecified Patient Disposition: Home, Self-Care Instructions: Acute Nausea and Vomiting (ED) Additional Instructions: return to ED for any worsening symptoms or concerns very limited diet today, fluids, crackers - nothing spicy no alcohol this could be related to marijuana please stop smoking Prescriptions: New famotidine [Pepcid] 20 mg tablet 20 mg PO DAILY PRN (Reason: abdominal discomfort) Qty: 30 0RF ondansetron 4 mg tablet,disintegrating 4 mg PO Q8H PRN (Reason: nausea and vomiting) Qty: 20 0RF No Action ibuprofen 600 mg tablet 600 mg PO TID 7 Days Qty: 21 0RF Stand Alone Forms: Work/School Release
[2022-02-19] MEDS: Metoclopramide HCl 10 MG/2 ML VIAL IVPUSH (06:43)
[2022-02-19] MEDS: 0.9 % Sodium Chloride 1,000 ML 999 ML IV (06:43)
[2022-02-19] MEDS: diphenhydrAMINE HCL 50 MG/ML VIAL 25 MG IVPUSH (06:43)
[2022-02-19 06:53] LABS: Alanine Aminotransferase 14 U/L (0-31); Albumin Level 4.6 g/dL (3.5-5.0); Alkaline Phosphatase 60 U/L (39-117); Aspartate Amino Transferase 17 U/L (5-31); Bilirubin Direct 0.2 mg/dL (0.0-0.5); Bilirubin Total 0.2 mg/dL (0.0-1.0); Lipase 14 U/L (8-78); Total Protein 7.4 g/dL (6.5-8.0)
[2022-02-19 06:59] LABS: HCG Quantitative < 2 mIU/mL
[2022-02-19 07:01] VITALS: BP 110/60; PULSE 60; RESP 14; TEMP 36.4; O2SAT 100
[2022-02-19] MEDS: Haloperidol Lactate 5 MG/ML VIAL IM (09:00)
[2022-02-19 09:16] LABS: Ethanol < 10 mg/dL
[2022-02-19 13:56] LABS: Appearance Urine Clear; Color Urine Yellow; Glucose Urine UA Negative (Negative); Leukocyte Esterase Urine Negative (Negative); Nitrite Urine Negative (Negative); PH 7.5 (5.0-9.0); Urine Blood Negative (Negative); Urine Ketones Negative (Negative); Urine Protein Negative (Neg-Trace)
[2022-02-19 13:57] LABS: UPreg QC Valid YES; Urine Pregnancy NEGATIVE (NEGATIVE)
[2022-02-19 14:07] VITALS: BP 99/62; PULSE 83; RESP 20; O2SAT 100
[2022-02-19 14:07] LABS: Amphetamine Screen Urine Not Detected (Not Detect); Barbiturates, Urine Not Detected (Not Detect); Benzodiazepines Screen Urine Not Detected (Not Detect); Cannabinoid Screen Urine POSITIVE (Not Detect); Cocaine Screen Urine Not Detected (Not Detect); Fentanyl, urine Not Detected (Not Detect); Opiate Screen Urine Not Detected (Not Detect); Phencyclidine Screen Urine Not Detected (Not Detect)
== END 2022-02-19 14:10 | disposition home or self-care (01) ==
PROVIDERS: Emergency Provider Emergency Medicine; PCP Nurse Practitioner Family
DX: R10.13 Epigastric pain (principal); R11.2 Nausea with vomiting, unspecified; Z20.822 Contact with and (suspected) exposure to COVID-19; Z79.899 Other long term (current) drug therapy
CPT/HCPCS: 80048; 80076; 80307; 81003; 81025; 82077; 83690; 84702; 85025; 87635; 96361; 96372; 96374; 96375; 99284; J1200; J2765

== ENCOUNTER 2022-10-16 09:37 | Emergency (ER) | payer OTHER, SELFPAY ==
--- NOTE | ~2022-10-16 | CT_ITS ---
EXAMINATION: CT ABDOMEN AND PELVIS WITH CONTRAST CLINICAL INFORMATION: Right lower quadrant pain. COMPARISON: None available. TECHNIQUE: Multidetector volumetric images were obtained from the superior aspect of the liver through the pubic symphysis following administration 85 mL of Omnipaque 350 intravenous contrast. Sagittal and coronal reformatted images were obtained on the technologist's workstation. Oral contrast: No This CT examination was performed using dose optimization techniques as appropriate, variously including the following: *Automated exposure control *Adjustment of mA and/or kV according to patient size (this includes techniques or standardized protocols for targeted exams where dose is matched to indication/reason for exam; i.e. extremities or head) *Use of iterative reconstruction technique DLP: 421 mGy-cm FINDINGS: LUNG BASES: The visualized lung bases are unremarkable. LIVER, GALLBLADDER, AND BILIARY TREE: Unremarkable. PANCREAS: Unremarkable. SPLEEN: Unremarkable. ADRENAL GLANDS: Unremarkable. KIDNEYS AND URETERS: Mild pelvocaliectasis is seen bilaterally with transition at the ureteropelvic junctions bilaterally. No significant ureterectasis. No nephrolithiasis bilaterally. BLADDER: Unremarkable. GASTROINTESTINAL TRACT: The stomach, small bowel and appendix are unremarkable. The colon and rectum are unremarkable. ABDOMINAL WALL: No significant hernia is appreciated. LYMPH NODES: No lymphadenopathy. VASCULAR: Unremarkable. PELVIC VISCERA: Unremarkable. OSSEOUS STRUCTURES: Unremarkable. CT/CT abdomen pelvis w IV con IMPRESSION: 1. No acute intra-abdominal/pelvic abnormality to explain the patient's pain. No evidence for acute appendicitis. 2. Mild bilateral pelvocaliectasis with transition at the ureteropelvic junctions bilaterally. No significant ureterectasis. No nephrolithiasis. This could be secondary to normal retention however, mild ureteropelvic junction stenosis cannot be excluded. No other associated abnormality. Nonemergent pre-and post void renal and urinary bladder ultrasound may be of value.
[2022-10-16 10:01] VITALS: BP 108/70; PULSE 65; RESP 16; TEMP 36; O2SAT 100; BMI 26.8
[2022-10-16 11:14] LABS: MANUAL DIFF FLAG NO
[2022-10-16 11:25] VITALS: BP 104/59; PULSE 70; RESP 15; TEMP 36.6; O2SAT 100
[2022-10-16 11:29] LABS: Basophils Percent Auto 0.2 % (0-2); Eosinophils Percent Auto 0.4 % (0-4); Hematocrit 36.9 % (37.0-47.0); Hemoglobin 12.3 g/dl (12.0-16.0); Imm Gran Abs Auto 0.02 X10*3/uL (0.00-0.03); Imm Gran Pct Auto 0.4 % (0.0-0.4); Lymphocytes Absolute Auto 0.9 X10*3/uL (1.2-4.9); Lymphocytes Percent Auto 19.8 % (20-40); Mean Corpuscular HGB Conc 33.3 g/dl (31.0-35.0); Mean Corpuscular Hemoglobin 29.6 pg (27.0-33.0); Mean Corpuscular Volume 88.7 fL (80.0-98.0); Mean Platelet Volume 10.4 fL (9.4-12.3); Monocytes Absolute Auto 0.3 X10*3/uL (0.1-1.2); Monocytes Percent Auto 6.2 % (2-11); Neutrophils Absolute Auto 3.4 x10*3/uL (2.0-8.3); Platelet Count 199 X10*3/uL (160-400); Red Blood Count 4.16 X10*6/uL (4.20-5.50); Red Cell Distribution Width 11.9 % (11.0-16.0); White Blood Count 4.7 X10*3/uL (4.8-10.8)
[2022-10-16 11:34] LABS: Alanine Aminotransferase 12 U/L (0-31); Albumin Level 4.2 g/dL (3.5-5.0); Alkaline Phosphatase 56 U/L (39-117); Anion Gap 9 (12-20); Aspartate Amino Transferase 18 U/L (5-31); Bilirubin Total 0.3 mg/dL (0.0-1.0); Blood Urea Nitrogen 12 mg/dL (9-16); Calcium 9.1 mg/dL (8.4-10.2); Carbon Dioxide 25 mmol/L (22-29); Chloride 108 mmol/L (96-108); Creatinine Clr Calc Pharmacy 128.3; Estimated Glomerular Filt Rate > 60; Glucose Random 90 mg/dL (60-115); Lipase 15 U/L (8-78); Potassium 4.4 mmol/L (3.3-5.1); Sodium 138 mmol/L (135-145); Total Protein 7.2 g/dL (6.5-8.0)
[2022-10-16 11:57] LABS: UPreg QC Valid YES; Urine Pregnancy NEGATIVE (NEGATIVE)
[2022-10-16 11:59] LABS: Appearance Urine Clear; Color Urine Yellow; Glucose Urine UA Negative (Negative); Leukocyte Esterase Urine Negative (Negative); Nitrite Urine Negative (Negative); PH 6.5 (5.0-9.0); Specific Gravity - Urine 1.025 (1.005-1.025); Urine Blood Negative (Negative); Urine Ketones Negative (Negative); Urine Protein Negative (Neg-Trace)
--- NOTE | 2022-10-16 12:57 | ED_ITS ---
HPI - Abdominal Pain General Chief Complaint: Abdominal Pain Stated Complaint: abd pain Time Seen by Provider: 10/16/22 12:45 Source: patient and RN notes reviewed Mode of arrival: ambulatory Limitations: no limitations History of Present Illness HPI narrative: This is a 21-year-old female, with a past medical history of D&C secondary to miscarriage, presenting to the emergency department with complaints of abdominal pain since this morning. Patient reports that she woke up this morning and felt as though she needed to have a bowel movement. Patient reports that she had a bowel movement but still had continued pain. Patient reports that her severity of her abdominal pain has been waxing and waning. She has had nausea and has vomited 3 times. She took 3 from Famotidine this morning without any relief. Patient denies any fevers or chills. She states that her menses was late last month otherwise no vaginal discharge or bleeding. No concerns for STIs at this time No other complaints or concerns at this time. MD elicited complaint: abdominal pain Pertinent past history: none Pain Consistency: constant Location: none Severity: moderate Quality: cramping and stabbing Radiation: RLQ Migration to: no migration Exacerbating factors: nothing Relieving factors: nothing Associated symptoms: nausea and vomiting Related Data Previous Rx's Medication Instructions Recorded ibuprofen 600 mg tablet 600 mg PO TID 7 days #21 tabs 04/06/21 famotidine 20 mg tablet (Pepcid) 20 mg PO DAILY PRN abdominal 02/19/22 discomfort #30 tabs ondansetron 4 mg disintegrating 4 mg PO Q8H PRN nausea and 02/19/22 tablet vomiting #20 tabs Allergies Allergy/AdvReac Type Severity Reaction Status Date / Time No Known Allergies Allergy Verified 10/16/22 10:01 Review of Systems Review of Systems Constitutional: No Weight loss, No Fever, No Chills, No Night Sweats, No Fatigue, No Malaise ENT/Mouth: No Hearing loss, No Ear Pain, No Nasal Congestion, No Sinus Pain, No Hoarseness, No sore throat, No Rhinorrhea, No Swallowing Difficulty Eyes: No Eye Pain, No Swelling, No Redness, No Foreign Body, No Discharge, No Vision Changes Cardiovascular: No Chest Pain, No SOB, No Dyspnea on Exertion, No Orthopnea, No Edema, No Palpitations Respiratory: No Cough, No Sputum, No Wheezing, No Smoke Exposure, No Dyspnea Gastrointestinal: + Nausea,+Vomiting, No Diarrhea, No Constipation, + Abdominal pain, No Hematochezia, No Melena Genitourinary: No irregular bleeding, No Dysuria, No Urinary Frequency, No Hematuria, No Urinary Incontinence/retention, No Urgency, No Flank Pain, No Urinary Flow Changes, No Hesitancy Musculoskeletal: No joint pain, No Myalgias, No Joint Swelling Skin: No Skin Lesions, No rash Neuro: No Weakness, No Numbness, No Paresthesias, No Loss of Consciousness, No Dizziness, No Headache Psych: No Anxiety/Panic, No Depression, No SI/HI/AH/VH, No Social Issues, Heme/Lymph: No Bruising, No Bleeding,No Lymphadenopathy Endocrine: No Polyuria, No Polydipsia, No Temperature Intolerance Yes all other systems are reviewed and are negative Constitutional: Reports as per HPI [facility] Past Medical History Medical History Arthralgia Blurred vision, bilateral Family history of systemic lupus erythematosus (SLE) in mother History of Hx of one miscarriage Surgical History History of dilatation and curettage Hx of section Family History Family History Mother SLE (systemic lupus erythematosus) Depression Social History Social History Alcohol intake: current Alcohol intake frequency: holidays/special occasions only Patient Tobacco Use Status: Never used Tobacco Smoked in Last 30 Days: No Substance Use Type: Marijuana Advance Directives: No Advance Directives Information Provided: Yes Physical Exam ED Vital Signs: Vital Signs - 24 hr 10/16/22 10:01 10/16/22 11:25 10/16/22 14:19 Temperature 96.8 F 97.9 F 98.1 F Pulse Rate 65 70 69 Respiratory Rate 16 15 16 Blood Pressure 108/70 104/59 L 107/59 L Pulse Oximetry 100 100 100 Oxygen Delivery Method Room Air Room Air Room Air BMI result Body Mass Index 26.8 Const General: cooperative, comfortable and no acute distress Orientation/consciousness: patient oriented x3 Limitations: no limitations HENMT Head: Yes normal to inspection, Yes normocephalic and Yes atraumatic Ears: hearing grossly normal bilaterally General nose exam: Normal external nose present Face and sinus: Yes normal facial exam Mouth: Normal oral and palatal mucosa present, oropharynx normal and moist mucous membranes Throat: Yes posterior oropharynx normal Eyes General: appearance normal, both eyes and all related structures Eyelids: Yes eyelids normal Conjunctivae: conjunctivae normal Sclerae: sclerae normal Pupils: Equal, round and reactive pupils present EOM: EOMs intact bilaterally Neck Neck: Yes normal visual inspection, Yes full ROM and Yes no lymphadenopathy Lymphatic: no lymphadenopathy noted Chest Chest palpation & inspection: normal inspection of the chest Resp Effort & Inspection: normal respiratory effort and able to speak in complete sentences Auscultation: clear to auscultation bilaterally, no crackles, no rales, no rhonchi and no wheezes Cardio Rate: regular rate Rhythm: regular rhythm Heart sounds: S1 normal heart sound present and S2 normal heart sound present GI Other: Abdomen is soft, with tenderness to palpation in the right lower quadrant, no suprapubic tenderness. Positive rebound, and guarding in the right lower quadrant. Normoactive bowel sounds present. Inspection: Yes normal to inspection Skin General skin exam: no rashes or lesions noted Trauma: no lacerations or abrasions Wounds: no wounds Neuro General: patient oriented x3 and moves all extremities Cranial nerves: Yes Equal, round and reactive pupils present Extrem General: Yes normal to inspection Right upper extremity: normal to inspection Left upper extremity: normal to inspection Right lower extremity: normal to inspection Left lower extremity: normal to inspection Course Reevaluation(s) Reevaluation #1: No leukocytosis, urine does not appear to be infected, urine negative. CT abdomen and pelvis pending. Patient will be medicated with 1 L of IV fluids and Toradol 30 mg IV. Time: 13:02 Reevaluation #2: Patient re-evaluated, feeling much better after IV fluids and Toradol. CT abdomen revealing Mild bilateral pelvocaliectasis with transition at the ureteropelvic junctions bilaterally. No significant ureterectasis. No nephrolithiasis. This could be secondary to normal retention however, mild ureteropelvic junction stenosis cannot be excluded. No other associated abnormality. Nonemergent pre-and post void renal and urinary bladder ultrasound may be of value. Will obtain bladder scan to ensure patient is not retaining. Discussed these results with patient, patient advised bland diet over the next several days, given GI referral if symptoms return. Patient reports that she currently does not have any symptoms and is feeling much better. Time: 16:03 Medical Decision Making Medical Decision Making [facility] Narrative: 21-year-old female presenting to the emergency department for evaluation of abdominal pain since this morning. She endorses nausea and vomiting. On arrival, vital signs within normal limits, patient is afebrile. On exam patient has right lower quadrant pain with rebound and guarding. Patient has bowel sounds present in all 4 quadrants. Plan labs, UA, CT abdomen and pelvis. Differential Diagnosis Differential Diagnoses: The differential diagnosis associated with the presentation includes Appendicitis, diverticulitis, diverticulosis, bowel obstruction Admission/Observation Consideration of admission/observation: Escalation of care including admission/observation considered Escalation of care including admission observation was considered given right lower quadrant pain concerning for appendicitis. Lab Data [facility] Lab Attestation statement: I reviewed the patient's lab results. 10/16/22 11:11 10/16/22 11:11 Labs: Lab Results 10/16/22 10/16/22 10/16/22 Range/Units 11:11 11:11 11:45 WBC 4.7 L (4.8-10.8) X10*3/uL RBC 4.16 L (4.20-5.50) X10*6/uL Hgb 12.3 (12.0-16.0) g/dl Hct 36.9 L (37.0-47.0) % MCV 88.7 (80.0-98.0) fL MCH 29.6 (27.0-33.0) pg MCHC 33.3 (31.0-35.0) g/dl RDW 11.9 (11.0-16.0) % Plt Count 199 (160-400) X10*3/uL MPV 10.4 (9.4-12.3) fL Immature Gran % (Auto) 0.4 (0.0-0.4) % Neut % (Auto) 73.0 (45-73) % Lymph % (Auto) 19.8 L (20-40) % [place] % (Auto) 6.2 (2-11) % Eos % (Auto) 0.4 (0-4) % Baso % (Auto) 0.2 (0-2) % Lymph # (Auto) 0.9 L (1.2-4.9) X10*3/uL [place] # (Auto) 0.3 (0.1-1.2) X10*3/uL Eos # (Auto) 0.0 (0.0-0.4) X10*3/uL Baso # (Auto) 0.0 (0.0-0.2) X10*3/uL Abs Immat Gran (auto) 0.02 (0.00-0.03) X10*3/uL Absolute Neuts (auto) 3.4 (2.0-8.3) x10*3/uL Absolute Nucleated RBC 0.000 (0.0-0.012) X10*3/uL Nucleated RBC % (auto) 0.0 (0.0-0.2) /100WBC Sodium 138 (135-145) mmol/L Potassium 4.4 (3.3-5.1) mmol/L Chloride 108 (96-108) mmol/L Carbon Dioxide 25 (22-29) mmol/L Anion Gap 9 L (12-20) BUN 12 (9-16) mg/dL Creatinine 0.61 (0.5-1.4) mg/dL Estim Creat Clear Calc 128.3 Estimated GFR > 60 Random Glucose 90 (60-115) mg/dL Calcium 9.1 (8.4-10.2) mg/dL Total Bilirubin 0.3 (0.0-1.0) mg/dL AST 18 (5-31) U/L ALT 12 (0-31) U/L Alkaline Phosphatase 56 (39-117) U/L Total Protein 7.2 (6.5-8.0) g/dL Albumin 4.2 (3.5-5.0) g/dL Lipase 15 (8-78) U/L Urine Color Yellow Urine Appearance Clear Urine pH 6.5 (5.0-9.0) Ur Specific [place] 1.025 (1.005-1.025) Urine Protein Negative (Neg-Trace) mg/dL Urine Glucose (UA) Negative (Negative) mg/dL Urine Ketones Negative (Negative) mg/dL Urine Blood Negative (Negative) Urine Nitrite Negative (Negative) Ur Leukocyte Esterase Negative (Negative) Urine Test (NEGATIVE) 06/29/23 Range/Units 11:45 WBC (4.8-10.8) X10*3/uL RBC (4.20-5.50) X10*6/uL Hgb (12.0-16.0) g/dl Hct (37.0-47.0) % MCV (80.0-98.0) fL MCH (27.0-33.0) pg MCHC (31.0-35.0) g/dl RDW (11.0-16.0) % Plt Count (160-400) X10*3/uL MPV (9.4-12.3) fL Immature Gran % (Auto) (0.0-0.4) % Neut % (Auto) (45-73) % Lymph % (Auto) (20-40) % [place] % (Auto) (2-11) % Eos % (Auto) (0-4) % Baso % (Auto) (0-2) % Lymph # (Auto) (1.2-4.9) X10*3/uL [place] # (Auto) (0.1-1.2) X10*3/uL Eos # (Auto) (0.0-0.4) X10*3/uL Baso # (Auto) (0.0-0.2) X10*3/uL Abs Immat Gran (auto) (0.00-0.03) X10*3/uL Absolute Neuts (auto) (2.0-8.3) x10*3/uL Absolute Nucleated RBC (0.0-0.012) X10*3/uL Nucleated RBC % (auto) (0.0-0.2) /100WBC Sodium (135-145) mmol/L Potassium (3.3-5.1) mmol/L Chloride (96-108) mmol/L Carbon Dioxide (22-29) mmol/L Anion Gap (12-20) BUN (9-16) mg/dL Creatinine (0.5-1.4) mg/dL Estim Creat Clear Calc Estimated GFR Random Glucose (60-115) mg/dL Calcium (8.4-10.2) mg/dL Total Bilirubin (0.0-1.0) mg/dL AST (5-31) U/L ALT (0-31) U/L Alkaline Phosphatase (39-117) U/L Total Protein (6.5-8.0) g/dL Albumin (3.5-5.0) g/dL Lipase (8-78) U/L Urine Color Urine Appearance Urine pH (5.0-9.0) Ur Specific [place] (1.005-1.025) Urine Protein (Neg-Trace) mg/dL Urine Glucose (UA) (Negative) mg/dL Urine Ketones (Negative) mg/dL Urine Blood (Negative) Urine Nitrite (Negative) Ur Leukocyte Esterase (Negative) Urine Test NEGATIVE (NEGATIVE) Radiology Impression Discussion of test interpretation with radiology: I have reviewed the radiologist's reading. External Record Review External record reviewed: Inpatient record, Office record, Outpatient record, Prior outpatient labs, Prior outpatient radiology, Primary care record and Outside ED record Medications Administered Discontinued Medications Generic Name Dose Route Start Last Admin Trade Name Freq PRN Reason Stop Dose Admin Sodium Chloride 1,000 mls @ 999 mls/hr 10/16/22 12:57 10/16/22 14:10 Ns IV 10/16/22 13:57 Infused .Q1H1M ONE Infusion Iohexol 100 ml 10/16/22 14:36 10/16/22 14:36 Iohexol 350 Mg/Ml 100 Ml Infus..Btl IV 10/16/22 14:37 85 ml ONCE ONE Administration Ketorolac Tromethamine 30 mg 10/16/22 12:57 10/16/22 13:08 Ketorolac Tromethamine 30 Mg/Ml Vial IVPUSH 10/16/22 12:58 30 mg ONCE ONE Administration Discharge Plan Discharge Clinical Impression: Abdominal pain Patient Disposition: Home, Self-Care Instructions: Abdominal Pain (ED) Additional Instructions: Your abdominal CT scan did show any abnormalities. Your urine did not look infected, and your blood work was reassuring today. Your symptoms improved after receiving IV fluids and pain medication. Please follow-up with your primary care physician regarding this visit. I am also referring you to GI should your symptoms return you would like to follow-up. If any new or worsening symptoms occur please return for re-evaluation. Prescriptions: No Action famotidine [Pepcid] 20 mg tablet 20 mg PO DAILY PRN (Reason: abdominal discomfort) Qty: 30 0RF ondansetron 4 mg tablet,disintegrating 4 mg PO Q8H PRN (Reason: nausea and vomiting) Qty: 20 0RF ibuprofen 600 mg tablet 600 mg PO TID 7 Days Qty: 21 0RF Referrals: [facility] [place] [facility] [Provider Group]
[2022-10-16] MEDS: 0.9 % Sodium Chloride 1,000 ML 999 ML IV (13:08)
[2022-10-16] MEDS: Ketorolac Tromethamine 30 MG/ML VIAL IVPUSH (13:08)
[2022-10-16 14:19] VITALS: BP 107/59; PULSE 69; RESP 16; TEMP 36.7; O2SAT 100
[2022-10-16] MEDS: iohexoL 350 MG/ML 100 ML INFUS..BTL IV (14:36)
[2022-10-16 16:25] VITALS: BP 119/65; PULSE 60; RESP 16; TEMP 36.6; O2SAT 100
== END 2022-10-16 16:31 | disposition home or self-care (01) ==
PROVIDERS: Emergency Provider Emergency Medicine; PCP Nurse Practitioner Family
DX: R10.30 Lower abdominal pain, unspecified (principal); R30.0 Dysuria; R10.31 Right lower quadrant pain; Z79.899 Other long term (current) drug therapy
CPT/HCPCS: 36415; 51798; 74177; 80053; 81003; 81025; 83690; 85025; 96361; 96374; 99284; J1885; Q9967

== ENCOUNTER 2023-01-06 13:07 | Outpatient (REF) | payer OTHER, SELFPAY ==
[2023-01-06 14:39] LABS: Hematocrit 40.1 % (37.0-47.0); Hemoglobin 13.3 g/dl (12.0-16.0); Mean Corpuscular HGB Conc 33.2 g/dl (31.0-35.0); Mean Corpuscular Hemoglobin 29.4 pg (27.0-33.0); Mean Corpuscular Volume 88.5 fL (80.0-98.0); Mean Platelet Volume 10.5 fL (9.4-12.3); Platelet Count 240 X10*3/uL (160-400); Red Blood Count 4.53 X10*6/uL (4.20-5.50); White Blood Count 4.7 X10*3/uL (4.8-10.8)
[2023-01-06 16:01] LABS: CT PCR NOT DETECTED (Not Detect.); NG PCR NOT DETECTED (Not Detect.)
[2023-01-06 16:12] LABS: HCG Quantitative < 2 mIU/mL; TSH reflex Free T4 0.82 uIU/mL (0.32-4.0)
[2023-01-07 07:28] LABS: Prolactin 5.6 ng/mL
== END 2023-01-06 13:08 | disposition home or self-care (01) ==
LOC: HO.LNP 13:07
PROVIDERS: PCP Nurse Practitioner Family; Visit Provider Obstetrics & Gynecology
DX: N93.9 Abnormal uterine and vaginal bleeding, unspecified (principal); Z30.09 Encounter for other general counseling and advice on contraception; Z32.02 Encounter for pregnancy test, result negative
CPT/HCPCS: 0353U; 81025; 84146; 84443; 84702; 85027; 88142; 99212

== ENCOUNTER 2023-01-06 13:07 | Outpatient (AMB) | payer OTHER, SELFPAY ==
--- NOTE | 2023-01-06 13:13 | MHC.OFFVIS ---
Intake Vital Signs 01/06/23 13:20 Height 5 ft 2 in Weight 145 lb 8.081 oz BMI 26.6 BP 116/62 Intake Visit Reasons: irregular menstrual Knowledge Analyst Required: No Information Interpreted: non-clinical & clinical Floor Sander: Floor Sander Present (Liane Ash SPIKE) Accompanied by: Self / Same As Patient Allergies No Known Allergies Allergy (Verified 01/06/23 13:21) Is last menstrual period known: Yes Last menstrual period: 12/22/22 HPI HPI Comments History of Present Illness Details Presenting complaining of irregular menstrual cycles associated with pelvic cramping. [facility] Medical History History of Blurred vision, bilateral Family history of systemic lupus erythematosus (SLE) in mother Arthralgia Hx of one miscarriage Surgical History Hx of section History of dilatation and curettage Family History Mother SLE (systemic lupus erythematosus) Depression Social History Alcohol intake: current Alcohol intake frequency: holidays/special occasions only Patient Tobacco Use Status: Never used Tobacco Substance Use Type: Marijuana Female Reproductive History Menstrual Age of Menarche: 10 Date of last menstrual period: 12/22/22 Review of Systems Const All systems reviewed & are unremarkable except as noted in HPI and below Card Reports as per HPI Resp Reports as per HPI GI Reports as per HPI and Reports no additional complaints Reports as per HPI Physical Exam Vital Signs: Last Vital Signs BP 116/62 01/06/23 13:20 BMI result Body Mass Index 26.6 Const General: cooperative, healthy appearing and comfortable Chest Chest palpation & inspection: normal inspection of the chest and normal palpation of entire chest wall Breast/axilla inspection: normal inspection of the breasts and normal inspection of the axillae Breast/axilla palpation: normal palpation of the breasts, normal palpation of the axillae and no axillary lymphadenopathy Resp Effort & Inspection: normal respiratory effort Auscultation: clear to auscultation bilaterally Percussion: percussion normal Cardio Palpation: normal PMI Rate: regular rate Rhythm: regular rhythm Heart sounds: no murmurs and no rubs Peripheral pulses: Peripheral pulses 2+ throughout GI Inspection: Yes normal to inspection Palpation (GI): Soft to palpation, nontender, no guarding, not rigid and No hepatosplenomegaly present Percussion: Yes normal to percussion Auscultation: normal bowel sounds Rectal Exam - Female: deferred General: Yes bladder normal to palpation External Female Exam: No lesion Speculum Exam - Vagina: normal appearance of the vagina, normal palpation, normal vaginal discharge and not erythematous Speculum Exam - Cervix: normal appearance of the cervix and normal palpation Bimanual exam- vagina & uterus: normal bimanual exam, normal palpation, uterine size normal, bladder normal to palpation, consistency normal and normal palpation Bimanual Exam- Adnexa, other: normal adnexae, no masses and no tenderness Results AMB Test Urine AMB Test Urine Negative Last Edit by Liane Ash CMA on 01/06/23 13:22 Assessment & Plan Assessment & Plan (1) Abnormal uterine bleeding (AUB): Code(s): N93.9 - Abnormal uterine and vaginal bleeding, unspecified Plan: Pap smear done, GC and chlamydia taken CBC, TSH, HCG, and pelvic ultrasound ordered. Discussed with the patient the different causes of abnormal bleeding including thyroid disorders, uterine and ovarian pathology, and other potential causes. Discussed with the patient the work up including CBC (to r/o anemia), TSH, pelvic Ultrasound. All questions answered and the patient verbalized understanding. Instructed the patient to schedule follow-up appointment in 2 weeks. Orders: Orders Pap Smear Today Z30.09 - Encounter for other general counseling and advice on contraception Prolactin Today N93.9 - Abnormal uterine and vaginal bleeding, unspecified HCG Quantitative Today N93.9 - Abnormal uterine and vaginal bleeding, unspecified US pelvic and transvaginal Today N93.9 - Abnormal uterine and vaginal bleeding, unspecified CT NG by PCR Today N93.9 - Abnormal uterine and vaginal bleeding, unspecified AMB HCG Urine Test Today Z32.02 - Encounter for test, result negative TSH reflex Free T4 Today N93.9 - Abnormal uterine and vaginal bleeding, unspecified Complete Blood Count no Diff Today N93.9 - Abnormal uterine and vaginal bleeding, unspecified Coding Level of Care Code Est Pt Level 3 (35830) Diagnoses Abnormal uterine bleeding (AUB) N93.9
[2023-01-06 13:20] VITALS: BP 116/62; BMI 26.6
== END 2023-01-06 13:59 | disposition home or self-care (01) ==
LOC: HO.HWS 13:07
PROVIDERS: PCP Nurse Practitioner Family; Visit Provider Obstetrics & Gynecology
DX: Z32.02 Encounter for pregnancy test, result negative (principal); N93.9 Abnormal uterine and vaginal bleeding, unspecified
CPT/HCPCS: 99213

== ENCOUNTER 2023-01-06 13:40 | Outpatient (REF) | payer OTHER, SELFPAY | END 2023-01-06 13:41 | disposition home or self-care (01) | LOC: HO.LAB 13:40 | PROVIDERS: PCP Internal Medicine; Visit Provider Obstetrics & Gynecology | DX: Z13.89 Encounter for screening for other disorder (principal) ==

== ENCOUNTER 2023-01-16 14:44 | Outpatient (REF) | payer OTHER, SELFPAY ==
--- NOTE | ~2023-01-16 | US_ITS ---
EXAMINATION: US PELVIS CLINICAL INFORMATION: Abnormal uterine and vaginal bleeding. COMPARISON: Pelvic CT 10/16/2022. TECHNIQUE: Ultrasound of the pelvis is performed using both transabdominal and transvaginal transducers along with Doppler. Transvaginal imaging is performed due to inadequate visualization transabdominally. FINDINGS: Uterus: The uterus is anteverted and measures 6.7 x 3.7 x 3.9 cm. The double wall endometrial thickness is 4 mm. The uterus is smooth in contour and has normal myometrial echogenicity. No visible fibroid. Adnexa: The right ovary measures 4.3 x 2.0 x 3.1 cm, volume 13.4 mL. At least 12 antral follicles. Normal color and spectral Doppler. The left ovary measures 3.7 x 2.9 x 2.1 cm, volume 11.5 mL. Normal color and spectral Doppler. US/US pelvic and transvaginal IMPRESSION: Normal appearing uterus and endometrial stripe. Ovarian volumes greater than 10 mL with at least 12 antral follicles visible in the right ovary. This is consistent with PCO morphology. Correlate clinically.
== END 2023-01-16 14:45 | disposition home or self-care (01) ==
LOC: HO.US 14:44
PROVIDERS: PCP Internal Medicine; Visit Provider Obstetrics & Gynecology
DX: N93.9 Abnormal uterine and vaginal bleeding, unspecified (principal)
CPT/HCPCS: 76830; 76856

== ENCOUNTER 2023-05-07 10:10 | Emergency (ER) | payer OTHER, SELFPAY ==
[2023-05-07 10:13] VITALS: BP 108/80; PULSE 91; RESP 19; TEMP 36.6; O2SAT 100; BMI 27.4
[2023-05-07 10:51] VITALS: RESP 18; TEMP 36.8
[2023-05-07 10:54] LABS: MANUAL DIFF FLAG NO
[2023-05-07 10:56] LABS: Basophils Percent Auto 0.2 % (0-2); Eosinophils Percent Auto 0.2 % (0-4); Hematocrit 32.8 % (37.0-47.0); Hemoglobin 11.3 g/dl (12.0-16.0); Lymphocytes Absolute Auto 0.8 X10*3/uL (1.2-4.9); Lymphocytes Percent Auto 19.2 % (20-40); Mean Corpuscular HGB Conc 34.5 g/dl (31.0-35.0); Mean Corpuscular Hemoglobin 29.8 pg (27.0-33.0); Mean Corpuscular Volume 86.5 fL (80.0-98.0); Mean Platelet Volume 9.7 fL (9.4-12.3); Monocytes Absolute Auto 0.4 X10*3/uL (0.1-1.2); Monocytes Percent Auto 8.9 % (2-11); Neutrophils Absolute Auto 3.1 x10*3/uL (2.0-8.3); Neutrophils Percent Auto 71.5 % (45-73); Platelet Count 189 X10*3/uL (160-400); Red Blood Count 3.79 X10*6/uL (4.20-5.50); Red Cell Distribution Width 11.9 % (11.0-16.0); White Blood Count 4.3 X10*3/uL (4.8-10.8)
[2023-05-07 11:07] LABS: Anion Gap 8 (12-20); Blood Urea Nitrogen 10 mg/dL (9-16); Carbon Dioxide 27 mmol/L (22-29); Chloride 110 mmol/L (96-108); Creatinine Clr Calc Pharmacy 118.7; Estimated Glomerular Filt Rate > 60; Glucose Random 89 mg/dL (60-115); Potassium 4.2 mmol/L (3.3-5.1); Sodium 141 mmol/L (135-145)
--- NOTE | 2023-05-07 11:07 | ED.URI ---
HPI - URI/Sore Throat General Chief Complaint: General Medical Stated Complaint: Abd pain, headache Time Seen by Provider: 05/07/23 10:36 Source: patient Mode of arrival: ambulatory Limitations: no limitations History of Present Illness HPI Narrative: 22 yo female with PMH of migraines here with c/o having a migraine starting Thursday along with nasal congestiong, cough, not feeling well and body aches. She then developed a fever and worsening body aches, dizziness and her headache will not resolve as of yesterday. She has some n/v as well. Denies travel or known sick contacts. Usually headaches go away with excedrin but not this time. Temp was 102. No vaccinations against flu. MD elicited complaint: fever, cough, rhinorrhea and nasal congestion Onset (ago): day(s) (few) Consistency: constant Severity: moderate Description of mucous: clear Able to tolerate fluids by mouth: Yes Exacerbating factors: other (coughing) Relieving factors: NSAID Associated symptoms: chills Treatments prior to arrival: other (tried motrin yesterday ) Related Data Previous Rx's Medication Instructions Recorded ibuprofen 600 mg tablet 600 mg PO TID 7 days #21 tabs 04/06/21 famotidine 20 mg tablet (Pepcid) 20 mg PO DAILY PRN abdominal 02/19/22 discomfort #30 tabs ondansetron 4 mg disintegrating 4 mg PO Q8H PRN nausea and 02/19/22 tablet vomiting #20 tabs ondansetron 4 mg disintegrating 4 mg PO Q8H PRN nausea and 05/07/23 tablet vomiting #20 tabs Allergies Allergy/AdvReac Type Severity Reaction Status Date / Time No Known Allergies Allergy Verified 05/07/23 10:13 Review of Systems Review of Systems: Constitutional : pos Fever, pos Chills, No Fatigue ENT/Mouth : pos sore throat, pos Rhinorrhea Eyes: No Eye Pain, No Swelling, No Redness Cardiovascular : No Chest Pain, No SOB, No Dyspnea on Exertion Respiratory : No Cough, No Sputum Gastrointestinal : pos Nausea, pos Vomiting, No Diarrhea, No abdominal Pain Genitourinary : No Dysuria, No Urinary Frequency, No Hematuria, Musculoskeletal : No joint pain, pos Myalgias, No Joint Swelling Skin : No Skin Lesions, No rash Neuro : No Weakness, No Numbness, No Dizziness, positive Headache Psych : No Anxiety/Panic, No Depression Heme/Lymph: No Bruising, No Bleeding,No Lymphadenopathy Endocrine : No Polyuria, No Polydipsia All other systems reviewed and are negative PMFSH Past Medical History Attestation statement: The following information was validated with the patient. Source: old records reviewed Onset Date is defined in the Problem List Problems that require an onset date and time if occurred within 24 hrs of arrival to the ED Aortic Dissection and Rupture; Neurologic impairment; Cardiopulmonary Arrest; Endotracheal Intubation; Insertion or Replacement of Mechanical Circulatory Assist Device Medical History History of Blurred vision, bilateral Family history of systemic lupus erythematosus (SLE) in mother Arthralgia Hx of one miscarriage Surgical History Hx of section History of dilatation and curettage Family History Family History Mother SLE (systemic lupus erythematosus) Depression Social History Social History Alcohol intake: current Alcohol intake frequency: holidays/special occasions only Patient Tobacco Use Status: Never used Tobacco Smoked in Last 30 Days: No Use of substances other than those prescribed or required for medical reasons: Yes Substance Use Type: Marijuana Advance Directives: No Advance Directives Information Provided: No Physical Exam Vital Signs: Vital Signs: Last Vital Signs Temp 98.2 F 05/07/23 10:51 Pulse 91 05/07/23 10:13 Resp 18 05/07/23 10:51 BP 108/80 05/07/23 10:13 Pulse Ox 100 05/07/23 10:13 O2 Del Method Room Air 05/07/23 10:13 BMI result Body Mass Index 27.4 Appearance: Alert. Oriented X3. No acute distress. talking on phone Eyes: Pupils equal, round and reactive to light. ENT: Pharynx mild erythema no exudates Neck: Normal inspection. Neck supple. no meningeal signs CVS: Normal heart rate and rhythm. Pulses normal. Respiratory: No respiratory distress. Breath sounds normal. Abdomen: Soft and nontender. Skin: Skin warm and dry. Normal skin color. Normal skin turgor. Extremities: No lower extremity edema. No calf ttp Neuro: Oriented X 3. No motor deficit. No sensory deficit. Medications Administered Discontinued Medications Generic Name Dose Route Start Last Admin Trade Name Edinson PRN Reason Stop Dose Admin Diphenhydramine HCl 25 mg 05/07/23 11:04 05/07/23 11:19 Diphenhydramine Hcl 50 Mg/Ml Vial IVPUSH 05/07/23 11:05 25 mg ONCE ONE Administration Sodium Chloride 1,000 mls @ 999 mls/hr 05/07/23 11:15 05/07/23 11:13 Ns IV 05/07/23 12:15 999 mls/hr .Q1H1M SHIVANI Administration Ketorolac Tromethamine 15 mg 05/07/23 11:04 05/07/23 11:18 Ketorolac Tromethamine 15 Mg/Ml Vial IVPUSH 05/07/23 11:05 15 mg ONCE ONE Administration Metoclopramide HCl 10 mg 05/07/23 11:04 05/07/23 11:18 Metoclopramide Hcl 10 Mg/2 Ml Vial IVPUSH 05/07/23 11:05 10 mg ONCE ONE Administration Medical Decision Making Medical Decision Making MDM Narrative: 22 yo female with PMH of migraines here with c/o viral illness as well and fevers sore throat cough and body aches - she is not toxic appearing, normal neuro exam and no meningeal signs suspect flu or COVID triggering her migraine. At this time will obtain basic labs, viral panel, supportive medications and reassess. Her abdominal exam is benign Differential Diagnosis Differential Diagnoses: The differential diagnosis associated with the presentation includes migraine, viral syndrome Admission/Observation Consideration of admission/observation: Escalation of care including admission/observation considered feels better, not toxic stable for DC on day 5 to start paxlovid - symptoms started thursday patient defers treatment Lab Data [facility] Lab Attestation statement: I reviewed the patient's lab results. 05/07/23 10:47 05/07/23 10:47 Labs: Lab Results 05/07/23 Range/Units 10:47 WBC 4.3 L (4.8-10.8) X10*3/uL RBC 3.79 L (4.20-5.50) X10*6/uL Hgb 11.3 L (12.0-16.0) g/dl Hct 32.8 L (37.0-47.0) % MCV 86.5 (80.0-98.0) fL MCH 29.8 (27.0-33.0) pg MCHC 34.5 (31.0-35.0) g/dl RDW 11.9 (11.0-16.0) % Plt Count 189 (160-400) X10*3/uL MPV 9.7 (9.4-12.3) fL Immature Gran % (Auto) 0.0 (0.0-0.4) % Neut % (Auto) 71.5 (45-73) % Lymph % (Auto) 19.2 L (20-40) % Porter % (Auto) 8.9 (2-11) % Eos % (Auto) 0.2 (0-4) % Baso % (Auto) 0.2 (0-2) % Lymph # (Auto) 0.8 L (1.2-4.9) X10*3/uL Porter # (Auto) 0.4 (0.1-1.2) X10*3/uL Eos # (Auto) 0.0 (0.0-0.4) X10*3/uL Baso # (Auto) 0.0 (0.0-0.2) X10*3/uL Abs Immat Gran (auto) 0.00 (0.00-0.03) X10*3/uL Absolute Neuts (auto) 3.1 (2.0-8.3) x10*3/uL Absolute Nucleated RBC 0.000 (0.0-0.012) X10*3/uL Nucleated RBC % (auto) 0.0 (0.0-0.2) /100WBC Sodium 141 (135-145) mmol/L Potassium 4.2 (3.3-5.1) mmol/L Chloride 110 H (96-108) mmol/L Carbon Dioxide 27 (22-29) mmol/L Anion Gap 8 L (12-20) BUN 10 (9-16) mg/dL Creatinine 0.66 (0.5-1.4) mg/dL Estim Creat Clear Calc 118.7 Estimated GFR > 60 Random Glucose 89 (60-115) mg/dL Calcium 9.0 (8.4-10.2) mg/dL COVID-19 ([facility]) Positive A (Negative) COVID-19 Clin Com See Note Influenza Type A ([facility]) Negative (Negative) Influenza Type B ([facility]) Negative (Negative) Influenza A & B Note See Note External Record Review External record reviewed: Inpatient record Prescription Management I considered prescription management with: Antiviral and Other Discharge Plan Discharge Clinical Impression: COVID-19 Headache, migraine Qualifiers: Migraine type: unspecified Status migrainosus presence: without status migrainosus Intractability: not intractable Qualified Code(s): G43.909 - Migraine, unspecified, not intractable, without status migrainosus Patient Disposition: Home, Self-Care Instructions: Migraine Headache (ED), COVID-19 (Coronavirus Disease 2019) (ED) Additional Instructions: return for worsening pain, inability to eat or drink, chest pain trouble breathing or any other concerns. Prescriptions: New ondansetron 4 mg tablet,disintegrating 4 mg PO Q8H PRN (Reason: nausea and vomiting) Qty: 20 0RF No Action famotidine [Pepcid] 20 mg tablet 20 mg PO DAILY PRN (Reason: abdominal discomfort) Qty: 30 0RF ondansetron 4 mg tablet,disintegrating 4 mg PO Q8H PRN (Reason: nausea and vomiting) Qty: 20 0RF ibuprofen 600 mg tablet 600 mg PO TID 7 Days Qty: 21 0RF Stand Alone Forms: Work/School Release
[2023-05-07 11:11] LABS: COVID-19 Test Positive (Negative); IDNOW Serial# 55D5AD1C
[2023-05-07] MEDS: 0.9 % Sodium Chloride 1,000 ML 999 ML IV (11:13)
[2023-05-07 11:14] LABS: IDNOW Serial# 16C4AD1C; Influenza A Negative (Negative); Influenza B2 Negative (Negative)
[2023-05-07] MEDS: Ketorolac Tromethamine 15 MG/ML VIAL IVPUSH (11:18)
[2023-05-07] MEDS: Metoclopramide HCl 10 MG/2 ML VIAL IVPUSH (11:18)
[2023-05-07] MEDS: diphenhydrAMINE HCL 50 MG/ML VIAL 25 MG IVPUSH (11:19)
[2023-05-07 12:52] LABS: Appearance Urine Clear; Color Urine Yellow; Glucose Urine UA Negative (Negative); Leukocyte Esterase Urine Negative (Negative); Nitrite Urine Negative (Negative); Urine Blood Negative (Negative); Urine Ketones Trace mg/dL (Negative); Urine Protein Negative (Neg-Trace)
[2023-05-07 12:52] LABS: UPreg QC Valid YES
[2023-05-07 12:53] LABS: Urine Pregnancy NEGATIVE (NEGATIVE)
== END 2023-05-07 13:26 | disposition home or self-care (01) ==
PROVIDERS: Emergency Provider Emergency Medicine
DX: U07.1 COVID-19 (principal); G43.909 Migraine, unspecified, not intractable, without status migrainosus; R50.9 Fever, unspecified; M79.10 Myalgia, unspecified site; R42 Dizziness and giddiness; R11.2 Nausea with vomiting, unspecified; Z79.899 Other long term (current) drug therapy
CPT/HCPCS: 80048; 81003; 81025; 85025; 87502; 87635; 96374; 96375; 99284; J1200; J1885; J2765

== ENCOUNTER 2023-06-20 14:02 | Emergency (ER) | payer OTHER, SELFPAY ==
[2023-06-20 14:46] VITALS: BP 115/86; PULSE 78; RESP 18; TEMP 36.2; O2SAT 99; BMI 29.1
--- NOTE | 2023-06-20 14:48 | ED_ITS ---
HPI - General Adult General Chief complaint: Abdominal Pain Stated complaint: abd pain Time Seen by Provider: 06/20/23 15:56 Source: patient Mode of arrival: ambulatory Limitations: no limitations History of Present Illness HPI narrative: 22 year old female with pmhx significant for AUB presents to the ED today for evaluation of epigastric abdominal pain that began yesterday. Pain has been constant. She describes it as a burning/aching sensation. She reports associated nausea without vomiting. Denies known sick contacts. Denies recent travel or antibiotics. Endorses history of heavy alcohol consumption after having stillbirth a few years ago. She states that last year she stopped drinking. Denies current EtOH consumption. Denies illicit substance use including marijuana. Denies chance of . Denies fever, chills, sore throat, cough, vomiting, diarrhea, constipation, flank pain, dysuria, hematuria, vaginal discharge. Related Data Previous Rx's Medication Instructions Recorded ibuprofen 600 mg tablet 600 mg PO TID 7 days #21 tabs 04/06/21 famotidine 20 mg tablet (Pepcid) 20 mg PO DAILY PRN abdominal 02/19/22 discomfort #30 tabs ondansetron 4 mg disintegrating 4 mg PO Q8H PRN nausea and 02/19/22 tablet vomiting #20 tabs ondansetron 4 mg disintegrating 4 mg PO Q8H PRN nausea and 05/07/23 tablet vomiting #20 tabs famotidine 20 mg tablet (Pepcid) 20 mg PO DAILY 30 days #30 tabs 06/20/23 Allergies Allergy/AdvReac Type Severity Reaction Status Date / Time No Known Allergies Allergy Verified 06/20/23 14:50 Review of Systems 2 Review of Systems: Constitutional: No fever, chills, fatigue, night sweats, weight changes ENT/Mouth: No ear pain, hearing loss, nasal congestion, sinus pain, rhinorrhea, sore throat Eyes: No eye pain, swelling, redness, vision changes, discharge Cardio: No chest pain, palpitations, JHAVERI, orthopnea, peripheral edema Pulm: No SOB, cough, sputum, wheezing, dyspnea, hemoptysis GI: No vomiting, hematemesis, diarrhea, constipation, hematochezia, melena, + epigastric pain, + nausea : No irregular bleeding, dysuria, frequency, urgency, hesitancy, hematuria, flank pain, urinary flow changes, urinary incontinence or retention MSK: No back pain, neck pain, joint pain, myalgias Skin: No lesions, rashes Neuro: No weakness, numbness, paresthesias, LOC, dizziness, headache Psych: No anxiety/panic, depression, SI/HI, AH/VH All other systems reviewed and are negative. [facility] Past Medical History Attestation statement: The following information was validated with the patient. Source: old records reviewed and nursing notes reviewed Medical History History of Blurred vision, bilateral Family history of systemic lupus erythematosus (SLE) in mother Arthralgia Hx of one miscarriage Surgical History Hx of section History of dilatation and curettage Family History Family History Mother SLE (systemic lupus erythematosus) Depression Social History Social History Alcohol intake: current Alcohol intake frequency: holidays/special occasions only Patient Tobacco Use Status: Never used Tobacco Substance Use Type: Marijuana Advance Directives: No Advance Directives Information Provided: No Physical Exam ED Vital Signs: Vital Signs - 24 hr 06/20/23 14:46 06/20/23 17:43 Temperature 97.2 F 97.8 F Pulse Rate 78 72 Respiratory Rate 18 18 Blood Pressure 115/86 118/78 Pulse Oximetry 99 99 Oxygen Delivery Method Room Air Room Air BMI result Body Mass Index 29.1 Vital signs stable, afebrile Const General: cooperative, healthy appearing, comfortable and no acute distress Orientation/consciousness: patient oriented x3 Limitations: no limitations HENMT Head: Yes normal to inspection, Yes No palpable skull fracture present, Yes normocephalic and Yes atraumatic Eyes General: appearance normal, both eyes and all related structures Conjunctivae: conjunctivae normal Sclerae: sclerae normal Pupils: Equal, round and reactive pupils present Neck Neck: Yes normal visual inspection, Yes full ROM and Yes no lymphadenopathy Resp Effort & Inspection: normal respiratory effort and able to speak in complete sentences Auscultation: clear to auscultation bilaterally Cardio Rate: regular rate Rhythm: regular rhythm GI Other: Abdomen soft, nondistended, tender to palpation, normoactive bowel sounds x4. no rebound or guarding. no hepatosplenomegaly. Inspection: Yes normal to inspection General: Yes no CVA tenderness Back/Spine/Pelvis Back: no CVA tenderness Skin General skin exam: no rashes or lesions noted Neuro General: patient oriented x3 and gait normal Cranial nerves: Yes Equal, round and reactive pupils present Extrem General: Yes normal to inspection and Yes capillary refill normal Course Course Course Narrative: RME- 22-year-old female presents for evaluation of upper abdominal pain. Plan for labs including liver enzymes and lipase as well as UA and HCG Reevaluation(s) Reevaluation #1: 1642--CBC without leukocytosis. Stable anemia when compared to priors. No left shift. Chemistry without acute electrolyte abnormality requiring intervention. Lipase WNL > low suspicion for pancreatitis. Beta hCG negative > . Normal renal function. Urine negative for nitrites and leukocyte esterase. Are limited 20 WBC, limited 20 squamous epithelial cells and 4+ bacteria > given patient is completely asymptomatic, I believe these results may be due to contamination. We will hold off treatment until urine culture results return. GI cocktail ordered. 1811-- on re-evaluation, patient states her symptoms have completely resolved with GI cocktail. She states I burped a lot and then felt better . Symptoms may be due to gerd vs gastritis. Will send pepcid to pharmacy. Patient has remained stable throughout ED visit today. Discussed worrisome signs and symptoms and when to return to the ED. All questions answered at this time. Patient is agreeable with disposition and stable for discharge. Medications Administered Discontinued Medications Generic Name Dose Route Start Last Admin Trade Name Edinson PRN Reason Stop Dose Admin Al Hydroxide/Mg Hydroxide 30 ml 06/20/23 16:41 06/20/23 17:01 Magnesium Hydrox/Alum Hydrox 30 Ml Oral.Susp PO 06/20/23 16:42 30 ml ONCE ONE Administration Belladonna Alkaloids/Phenobarbital 10 ml 06/20/23 16:41 06/20/23 17:01 Phenobarb/Hyoscy/Atropine/Scop 10 Ml Elixir PO 06/20/23 16:42 10 ml ONCE ONE Administration Ondansetron HCl 4 mg 06/20/23 16:41 06/20/23 17:00 Ondansetron Odt 4 Mg Tab.Rapdis TRANSLINGU 06/20/23 16:42 4 mg ONCE ONE Administration Medical Decision Making Medical Decision Making [facility] Narrative: 22 year old female with pmhx significant for AUB presents to the ED today for evaluation of epigastric abdominal pain that began yesterday. Vital signs stable, afebrile. She is nontoxic-appearing and in no acute distress. On exam, abdomen is soft, nondistended, nontender to palpation, no rebound or guarding, normoactive bowel sounds x4. No CVAT bilaterally. No rashes. Differential includes GERD, gastritis, dehydration, , urinary tract infection. Lower suspicion for pancreatitis, cholecystitis. Labs, UA ordered. Plan for pain control and re-evaluation. Differential Diagnosis Differential Diagnoses: The differential diagnosis associated with the presentation includes As above Lab Data [facility] Lab Attestation statement: I reviewed the patient's lab results. as above. 06/20/23 15:22 06/20/23 15:22 Labs: Lab Results 06/20/23 06/20/23 Range/Units 15:22 16:01 WBC 6.0 (4.8-10.8) X10*3/uL RBC 3.95 L (4.20-5.50) X10*6/uL Hgb 11.7 L (12.0-16.0) g/dl Hct 34.5 L (37.0-47.0) % MCV 87.3 (80.0-98.0) fL MCH 29.6 (27.0-33.0) pg MCHC 33.9 (31.0-35.0) g/dl RDW 12.4 (11.0-16.0) % Plt Count 205 (160-400) X10*3/uL MPV 10.1 (9.4-12.3) fL Immature Gran % (Auto) 0.3 (0.0-0.4) % Neut % (Auto) 62.8 (45-73) % Lymph % (Auto) 30.9 (20-40) % [place] % (Auto) 5.3 (2-11) % Eos % (Auto) 0.5 (0-4) % Baso % (Auto) 0.2 (0-2) % Lymph # (Auto) 1.9 (1.2-4.9) X10*3/uL [place] # (Auto) 0.3 (0.1-1.2) X10*3/uL Eos # (Auto) 0.0 (0.0-0.4) X10*3/uL Baso # (Auto) 0.0 (0.0-0.2) X10*3/uL Abs Immat Gran (auto) 0.02 (0.00-0.03) X10*3/uL Absolute Neuts (auto) 3.8 (2.0-8.3) x10*3/uL Absolute Nucleated RBC 0.000 (0.0-0.012) X10*3/uL Nucleated RBC % (auto) 0.0 (0.0-0.2) /100WBC Sodium 136 (135-145) mmol/L Potassium 4.1 (3.3-5.1) mmol/L Chloride 108 (96-108) mmol/L Carbon Dioxide 22 (22-29) mmol/L Anion Gap 10 L (12-20) BUN 10 (9-16) mg/dL Creatinine 0.62 (0.5-1.4) mg/dL Estim Creat Clear Calc 130.1 Estimated GFR > 60 Random Glucose 84 (60-115) mg/dL Calcium 9.1 (8.4-10.2) mg/dL Total Bilirubin 0.8 (0.0-1.0) mg/dL AST 18 (5-31) U/L ALT 19 (0-31) U/L Alkaline Phosphatase 58 (39-117) U/L Total Protein 7.4 (6.5-8.0) g/dL Albumin 4.2 (3.5-5.0) g/dL Lipase 17 (8-78) U/L Beta HCG, Quant < 2 mIU/mL Urine Color Yellow Urine Appearance Cloudy Urine pH 6.5 (5.0-9.0) Ur Specific [place] 1.020 (1.005-1.025) Urine Protein Negative (Neg-Trace) mg/dL Urine Glucose (UA) Negative (Negative) mg/dL Urine Ketones Negative (Negative) mg/dL Urine Blood Negative (Negative) Urine Nitrite Negative (Negative) Ur Leukocyte Esterase Negative (Negative) Urine RBC 3-5 H (0-2) /HPF Urine WBC 11-20 H (0-5) /HPF Ur Squamous Epith Cells 11-20 (0-2) /HPF Urine Bacteria 4+ (None Seen) Hyaline Casts 3-5 (0-2) /LPF External Record Review External record reviewed: Inpatient record, Office record, Outpatient record, Prior outpatient labs, Prior outpatient radiology, Primary care record and Outside ED record Prescription Management I considered prescription management with: Other (Pepcid) Social Determinants Patient?s care significantly limited by Social Determinants of Health including: Other Social Determinant of Health Discharge Plan Discharge Clinical Impression: Epigastric pain Patient Disposition: Home, Self-Care Instructions: Gastroesophageal Reflux Disease (ED), Abdominal Pain (ED) Additional Instructions: Your lab work today is reassuring. Your urine showed bacteria however this may be contamination. You will be called if the urine culture returns positive and may be treated at that time. Your urine is negative for . Your symptoms improved with medications today. Pepcid has been sent to your pharmacy. Take this daily to help with abdominal discomfort. Follow-up with their PCP as needed. For new or worsening symptoms, please return to the ED. In the case of an emergency call 911. Prescriptions: New famotidine [Pepcid] 20 mg tablet 20 mg PO DAILY 30 Days Qty: 30 0RF No Action famotidine [Pepcid] 20 mg tablet 20 mg PO DAILY PRN (Reason: abdominal discomfort) Qty: 30 0RF ondansetron 4 mg tablet,disintegrating 4 mg PO Q8H PRN (Reason: nausea and vomiting) Qty: 20 0RF ondansetron 4 mg tablet,disintegrating 4 mg PO Q8H PRN (Reason: nausea and vomiting) Qty: 20 0RF ibuprofen 600 mg tablet 600 mg PO TID 7 Days Qty: 21 0RF Referrals: Marco Birch, [employer] [Primary Care Provider] - Interventions: ED Discharge Assessment Last Done: 06/20/23 18:23 Discharge Date/Time: 06/20/23 18:24
[2023-06-20 15:26] LABS: MANUAL DIFF FLAG NO
[2023-06-20 15:31] LABS: Basophils Percent Auto 0.2 % (0-2); Eosinophils Percent Auto 0.5 % (0-4); Hematocrit 34.5 % (37.0-47.0); Hemoglobin 11.7 g/dl (12.0-16.0); Imm Gran Abs Auto 0.02 X10*3/uL (0.00-0.03); Imm Gran Pct Auto 0.3 % (0.0-0.4); Lymphocytes Absolute Auto 1.9 X10*3/uL (1.2-4.9); Lymphocytes Percent Auto 30.9 % (20-40); Mean Corpuscular HGB Conc 33.9 g/dl (31.0-35.0); Mean Corpuscular Hemoglobin 29.6 pg (27.0-33.0); Mean Corpuscular Volume 87.3 fL (80.0-98.0); Mean Platelet Volume 10.1 fL (9.4-12.3); Monocytes Absolute Auto 0.3 X10*3/uL (0.1-1.2); Monocytes Percent Auto 5.3 % (2-11); Neutrophils Absolute Auto 3.8 x10*3/uL (2.0-8.3); Neutrophils Percent Auto 62.8 % (45-73); Platelet Count 205 X10*3/uL (160-400); Red Blood Count 3.95 X10*6/uL (4.20-5.50); Red Cell Distribution Width 12.4 % (11.0-16.0)
[2023-06-20 15:49] LABS: Alanine Aminotransferase 19 U/L (0-31); Albumin Level 4.2 g/dL (3.5-5.0); Alkaline Phosphatase 58 U/L (39-117); Anion Gap 10 (12-20); Aspartate Amino Transferase 18 U/L (5-31); Bilirubin Total 0.8 mg/dL (0.0-1.0); Blood Urea Nitrogen 10 mg/dL (9-16); Calcium 9.1 mg/dL (8.4-10.2); Carbon Dioxide 22 mmol/L (22-29); Chloride 108 mmol/L (96-108); Creatinine Clr Calc Pharmacy 130.1; Estimated Glomerular Filt Rate > 60; Glucose Random 84 mg/dL (60-115); Lipase 17 U/L (8-78); Potassium 4.1 mmol/L (3.3-5.1); Sodium 136 mmol/L (135-145); Total Protein 7.4 g/dL (6.5-8.0)
[2023-06-20 15:52] LABS: HCG Quantitative < 2 mIU/mL
[2023-06-20 16:14] LABS: Appearance Urine Cloudy; Color Urine Yellow; Glucose Urine UA Negative (Negative); Leukocyte Esterase Urine Negative (Negative); Nitrite Urine Negative (Negative); PH 6.5 (5.0-9.0); Urine Blood Negative (Negative); Urine Ketones Negative (Negative); Urine Protein Negative (Neg-Trace)
[2023-06-20 16:51] LABS: Bacteria Urine 4+ (None Seen); UACC Culture Trigger YES
[2023-06-20] MEDS: Ondansetron ODT 4 MG TAB.RAPDIS TRANSLINGU (17:00)
[2023-06-20] MEDS: Magnesium Hydrox/Alum Hydrox 30 ML ORAL.SUSP PO (17:01)
[2023-06-20] MEDS: PHENobarb/Hyoscy/Atropine/Scop 10 ML ELIXIR PO (17:01)
[2023-06-20 17:43] VITALS: BP 118/78; PULSE 72; RESP 18; TEMP 36.6; O2SAT 99
== END 2023-06-20 18:24 | disposition home or self-care (01) ==
PROVIDERS: Physician Assistant; Emergency Provider Emergency Medicine; PCP Nurse Practitioner Family
DX: R10.13 Epigastric pain (principal); R10.10 Upper abdominal pain, unspecified; Z79.899 Other long term (current) drug therapy
CPT/HCPCS: 36415; 80053; 81001; 83690; 84702; 85025; 87086; 99283

== ENCOUNTER 2023-12-01 17:46 | Emergency (ER) | payer OTHER, SELFPAY ==
[2023-12-01 17:57] VITALS: BP 123/71; PULSE 83; RESP 18; TEMP 36.5; O2SAT 98; BMI 30.9
--- NOTE | 2023-12-01 18:12 | ED.FALL ---
HPI - Fall General Chief Complaint: Fall Stated Complaint: Fell 4 days ago off ladder/Coccyx Pain Time Seen by Provider: 12/01/23 18:21 Source: patient Mode of arrival: ambulatory Limitations: no limitations History of Present Illness ED Provider: Dayanna Rand PA-C HPI Narrative: 22 yo female presents to the ER for evaluation of low back pain and tailbone bone after she fell 12 feet off of a fire escape 5 days ago. She was seen at [facility] ED at the time of the injury where she had CT scans of her head, abdomen and pelvis. She states she was told there was no fractures and she was advised to take tylenol and ibuprofen. She reports the pain in her lower back and tailbone is getting worse. She feels the muscles are pulling when she moves. It is worse when laying or sitting. Worse with movement or walking as well. No abdominal pain, no chest pain. No leg pain. MD complaint: fall Onset (ago): day(s) (5) Fall from: from height (distance) Fall witnessed: no Place fall occurred: street Loss of consciousness: none Prolonged down time: no Symptoms prior to fall: none Context: tripped/slipped Location of injury: back and pelvis Severity: moderate Severity scale (1-10): 8 Quality: sharp and spasming Related Data Previous Rx's ?Medication ?Instructions ?Recorded ibuprofen 600 mg tablet 600 mg PO TID 7 days #21 tabs 04/06/21 famotidine 20 mg tablet (Pepcid) 20 mg PO DAILY PRN abdominal 02/19/22 discomfort #30 tabs ondansetron 4 mg disintegrating 4 mg PO Q8H PRN nausea and 02/19/22 tablet vomiting #20 tabs ondansetron 4 mg disintegrating 4 mg PO Q8H PRN nausea and 05/07/23 tablet vomiting #20 tabs famotidine 20 mg tablet (Pepcid) 20 mg PO DAILY 30 days #30 tabs 06/20/23 cyclobenzaprine 10 mg tablet 10 mg PO TID PRN muscle spasm #10 12/01/23 tabs ibuprofen 600 mg tablet 600 mg PO Q8H PRN pain #14 tabs 12/01/23 morphine 15 mg immediate release 15 mg PO Q8H PRN severe pain 12/01/23 tablet (scale score 7-10) #6 tabs Allergies Allergy/AdvReac Type Severity Reaction Status Date / Time No Known Allergies Allergy Verified 12/01/23 18:03 Review of Systems Review of Systems: Yes all other systems are reviewed and are negative [facility] Past Medical History Medical History History of Blurred vision, bilateral Family history of systemic lupus erythematosus (SLE) in mother Arthralgia Hx of one miscarriage Surgical History Hx of section History of dilatation and curettage Family History Family History Mother SLE (systemic lupus erythematosus) Depression Social History Social History Alcohol intake: current Alcohol intake frequency: holidays/special occasions only Patient Tobacco Use Status: Never used Tobacco Substance Use Type: Marijuana Advance Directives: No Advance Directives Information Provided: Yes Do you have a plan to hurt others: No Plan Physical Exam Vital Signs: Vital Signs: Last Vital Signs Temp 97.7 F 12/01/23 18:24 Pulse 83 12/01/23 18:24 Resp 18 12/01/23 18:24 BP 123/71 12/01/23 18:24 Pulse Ox 98 12/01/23 18:24 O2 Del Method Room Air 12/01/23 18:24 BMI result Body Mass Index 30.9 Appearance: Alert. Oriented X3. No acute distress. HEENT: normal external inspection, atraumatic Neck: Normal inspection. Neck supple. CVS: Normal heart rate and rhythm. Pulses normal. Respiratory: No respiratory distress. Breath sounds normal. Abdomen: Soft and nontender. +BS x4 Back: normal inspection, no ecchymosis. tenderness of the lower lumbar spine and coccyx area. no erythema or swelling Skin: Skin warm and dry. Normal skin color. Normal skin turgor. No rashes. Extremities: No lower extremity edema. No joint swelling. Neuro/psych: Oriented X 3.Grossly normal, nonfocal. Normal speech and cognition.slow but steady gait Medications Administered Discontinued Medications Generic Name Dose Route Start Last Admin Trade Name Freq PRN Reason Stop Dose Admin Ketorolac Tromethamine 30 mg 12/01/23 18:15 12/01/23 18:19 Ketorolac Tromethamine 30 Mg/Ml Vial IM 12/01/23 18:16 30 mg ONCE ONE Administration Oxycodone HCl 5 mg 12/01/23 18:15 12/01/23 18:19 Oxycodone Hcl Immed Release 5 Mg Tablet PO 12/01/23 18:16 5 mg ONCE ONE Administration Medical Decision Making Medical Decision Making MDM Narrative: 22-year-old female presents the ER for evaluation of worsening low back pain and tailbone pain after she fell 5 days ago. She reportedly fell 12 ft from a fire escape onto her bottom. She had trauma scans done at [facility] that were negative for acute injuries. She states they were done with contrast. She does not have her discharge paperwork with her but she knows that she had scans of her pelvis, abdomen, head. She reports pain in her tailbone that is worse with lying and sitting. On examination she has no significant ecchymosis or swelling to the area. She does have soft tissue tenderness. She reports muscle pulling sensation. Will prescribe short course of pain medication along with muscle relaxer for her symptoms. At this time comfortable discharge home without repeating imaging given her recollection of events and extensive workup at [facility]. Unable to get the records today. She is stable for discharge home with outpatient follow-up. Differential Diagnosis Differential Diagnoses: The differential diagnosis associated with the presentation includes Oxygen contusion, coccyx fracture, compression fracture of lumbar spine, spinous process fracture, lumbar strain, lumbar spasm Tests considered The following testing was considered but not selected: Considered repeating imaging of the coccyx and low back however CT scans were done at [facility] Prescription Management I considered prescription management with: Pain Medication Critical Care Time Critical Care Time Critical Care Time: No Discharge Plan Discharge Clinical Impression: Contusion of coccyx Qualifiers: Encounter type: initial encounter Qualified Code(s): S30.0XXA - Contusion of lower back and pelvis, initial encounter Patient Disposition: Home, Self-Care Instructions: Coccyx Injury (ED) Additional Instructions: take the prescribed ibuprofen every 6-8 hours for pain and inflammation. take with food take the prescribed cyclobenzaprine as needed for muscle spasm take morphine as needed for severe pain only. do not drive after taking this medication also recommend tylenol 1000 mg every 6 hours around the clock use ice several times per day sit with a donut pillow If you develop new or worsening symptoms call 911 or come back to the ER for further evaluation. Prescriptions: New morphine 15 mg tablet 15 mg PO Q8H PRN (Reason: severe pain (scale score 7-10)) Qty: 6 0RF Rx Instructions: Partial Fill upon patient request. cyclobenzaprine 10 mg tablet 10 mg PO TID PRN (Reason: muscle spasm) Qty: 10 0RF ibuprofen 600 mg tablet 600 mg PO Q8H PRN (Reason: pain) Qty: 14 0RF No Action famotidine [Pepcid] 20 mg tablet 20 mg PO DAILY PRN (Reason: abdominal discomfort) Qty: 30 0RF ondansetron 4 mg tablet,disintegrating 4 mg PO Q8H PRN (Reason: nausea and vomiting) Qty: 20 0RF famotidine [Pepcid] 20 mg tablet 20 mg PO DAILY 30 Days Qty: 30 0RF ondansetron 4 mg tablet,disintegrating 4 mg PO Q8H PRN (Reason: nausea and vomiting) Qty: 20 0RF ibuprofen 600 mg tablet 600 mg PO TID 7 Days Qty: 21 0RF Interventions: ED Discharge Assessment Last Done: 12/01/23 18:24 Discharge Date/Time: 12/01/23 18:24 Print Language: [place]
[2023-12-01] MEDS: oxyCODONE HCl Immed Release 5 MG TABLET PO (18:19)
[2023-12-01] MEDS: Ketorolac Tromethamine 30 MG/ML VIAL IM (18:19)
[2023-12-01 18:24] VITALS: BP 123/71; PULSE 83; RESP 18; TEMP 36.5; O2SAT 98
== END 2023-12-01 18:24 | disposition home or self-care (01) ==
LOC: HO.ED 18:27
PROVIDERS: Emergency Provider Emergency Medicine; PCP Nurse Practitioner Family
DX: S30.0XXA Contusion of lower back and pelvis, initial encounter (principal); W17.89XA Other fall from one level to another, initial encounter; Y93.9 Activity, unspecified; Y92.9 Unspecified place or not applicable; Y99.9 Unspecified external cause status
CPT/HCPCS: 96372; 99283; 99284; J1885

== ENCOUNTER 2024-01-19 06:20 | Emergency (ER) | payer OTHER, SELFPAY ==
[2024-01-19] VITALS (7 sets, daily range): BP systolic 95–118; BP diastolic 40–71; PULSE 65–84; RESP 15–20; TEMP 36.5–36.9; O2SAT 99–100; BMI 31.2
--- NOTE | ~2024-01-19 | CT_ITS ---
EXAMINATION: CT ABDOMEN AND PELVIS WITH CONTRAST CLINICAL INFORMATION: Right lower quadrant pain. COMPARISON: October 16, 2022. TECHNIQUE: Multidetector volumetric images were obtained from the superior aspect of the liver through the pubic symphysis following administration 85 mL of Omnipaque 350 intravenous contrast. Sagittal and coronal reformatted images were obtained on the technologist's workstation. Oral contrast: No This CT examination was performed using dose optimization techniques as appropriate, variously including the following: *Automated exposure control *Adjustment of mA and/or kV according to patient size (this includes techniques or standardized protocols for targeted exams where dose is matched to indication/reason for exam; i.e. extremities or head) *Use of iterative reconstruction technique DLP: 506 mGy-cm FINDINGS: LUNG BASES: The lung bases appear clear, with no evidence of inflammation or nodules. LIVER, GALLBLADDER, AND BILIARY TREE: The liver appears unremarkable in size, shape, and attenuation. No focal hepatic lesion or biliary ductal dilatation is appreciated. Unremarkable appearance of the gallbladder. PANCREAS: Unremarkable SPLEEN: Unremarkable ADRENAL GLANDS: Unremarkable KIDNEYS AND URETERS: The kidneys appear unremarkable in size, shape, and attenuation. No hydronephrosis, hydroureter, or calculi seen. BLADDER: Unremarkable GASTROINTESTINAL TRACT: Somewhat limited by lack of oral contrast and by poorly distended colon. Grossly unremarkable appearance of the stomach, small bowel, and colon. No diverticulosis. Normal-appearing distal ileum and vermiform appendix. ABDOMINAL WALL: No significant hernia is appreciated. LYMPH NODES: No evidence of adenopathy by size criteria. VASCULAR: Unremarkable PELVIC VISCERA: Unremarkable OSSEOUS STRUCTURES: Unremarkable CT/CT abdomen pelvis w IV con IMPRESSION: Essentially unremarkable CT scans of the abdomen and pelvis with intravenous contrast only. Electronically signed by: Yunior Tolliver MD 01/19/2024 10:14 AM EDT
--- NOTE | ~2024-01-19 | US_ITS ---
EXAMINATION: US ABDOMEN LIMITED CLINICAL INFORMATION: Right upper quadrant pain. COMPARISON: CT scan dated January 19, 2024. No prior abdominal ultrasound. TECHNIQUE: Real-time imaging of the gallbladder and common bile duct. FINDINGS: GALLBLADDER: The gallbladder is physiologically distended without evidence of stones, sludge, polyps, wall thickening or pericholecystic fluid. Technologist reports positive sonographic Vazquez's sign. COMMON BILE DUCT: Normal in caliber measuring 0.5 cm in diameter. FREE FLUID: None. US/US abdomen limited IMPRESSION: Technologist reports positive sonographic Vazquez's sign. Otherwise unremarkable ultrasonographic evaluation of the gallbladder and common bile duct. Electronically signed by: Yunior Tolliver MD 01/19/2024 01:52 PM EDT
--- NOTE | 2024-01-19 06:29 | MHC.EDTECH ---
Patient BIBA,changed into hospital attire,vitals taken,call fish in reach
--- NOTE | 2024-01-19 06:54 | PC.NURSE ---
report given to Kathy MTZ
--- NOTE | 2024-01-19 07:01 | ED_ITS ---
HPI - Abdominal Pain General Chief Complaint: Abdominal Pain Stated Complaint: abd pain N/V Time Seen by Provider: 01/19/24 07:01 Source: patient and RN notes reviewed Mode of arrival: ambulatory Limitations: no limitations History of Present Illness ED Provider: Tiffanie Vallejo PA-C HPI narrative: This is a 23-year-old female, with no known medical problems, who presents emergency department with complaints of abdominal pain, nausea, vomiting and diarrhea x2 days. During my initial assessment, patient rolling around in bed, difficult to get a history from secondary to her symptoms. Per the triage note, patient was reporting right upper quadrant pain however upon my assessment, she is stating right lower quadrant pain. She also reports left shoulder pain. Denies history of similar symptoms in the past. She does smoke marijuana, has not smoked in 1 week. She does not drink alcohol daily. She currently has her menses. Upon re-evaluation, patient states that her symptoms started 2 days ago however worsened significantly this morning. She states that the pain is in her right lower quadrant. Pain is constant. Unable to tolerate p.o.. History of 2 sections which were several years ago. MD elicited complaint: abdominal pain Location: none Quality: cramping, aching and sharp Related Data Previous Rx's ?Medication ?Instructions ?Recorded ibuprofen 600 mg tablet 600 mg PO TID 7 days #21 tabs 04/06/21 famotidine 20 mg tablet (Pepcid) 20 mg PO DAILY PRN abdominal 02/19/22 discomfort #30 tabs ondansetron 4 mg disintegrating 4 mg PO Q8H PRN nausea and 02/19/22 tablet vomiting #20 tabs ondansetron 4 mg disintegrating 4 mg PO Q8H PRN nausea and 05/07/23 tablet vomiting #20 tabs famotidine 20 mg tablet (Pepcid) 20 mg PO DAILY 30 days #30 tabs 06/20/23 cyclobenzaprine 10 mg tablet 10 mg PO TID PRN muscle spasm #10 12/01/23 tabs ibuprofen 600 mg tablet 600 mg PO Q8H PRN pain #14 tabs 12/01/23 morphine 15 mg immediate release 15 mg PO Q8H PRN severe pain 12/01/23 tablet (scale score 7-10) #6 tabs ondansetron 4 mg disintegrating 4 mg PO Q6-8H PRN nausea #14 tabs 10/01/24 tablet Allergies Allergy/AdvReac Type Severity Reaction Status Date / Time No Known Allergies Allergy Verified 01/19/24 06:30 Review of Systems Review of Systems Yes all other systems are reviewed and are negative Constitutional: Reports as per [facility] Past Medical History Attestation statement: The following information was validated with the patient. Medical History History of Blurred vision, bilateral Family history of systemic lupus erythematosus (SLE) in mother Arthralgia Hx of one miscarriage Surgical History Hx of section History of dilatation and curettage Family History Family History Mother SLE (systemic lupus erythematosus) Depression Social History Social History Alcohol intake: current Alcohol intake frequency: holidays/special occasions only Patient Tobacco Use Status: Never used Tobacco Smoked in Last 30 Days: No Substance Use Type: Marijuana Advance Directives: No Advance Directives Information Provided: Yes Do you have a plan to hurt others: No Plan Patient : No Physical Exam ED Vital Signs: Vital Signs - 24 hr 01/19/24 14:33 01/19/24 14:47 01/19/24 15:54 Temperature 98.2 F 98.4 F Pulse Rate 80 84 Respiratory Rate 15 15 Blood Pressure 95/40 L 107/53 L 114/67 Pulse Oximetry 100 100 Oxygen Delivery Method Room Air Room Air 01/19/24 17:31 Temperature 98.2 F Pulse Rate 78 Respiratory Rate 16 Blood Pressure 112/63 Pulse Oximetry 100 Oxygen Delivery Method Room Air BMI result Body Mass Index 31.2 Const General: cooperative, comfortable and no acute distress Orientation/consciousness: patient oriented x3 Limitations: no limitations HENMT Head: Yes normal to inspection, Yes normocephalic and Yes atraumatic Ears: hearing grossly normal bilaterally General nose exam: Normal external nose present Face and sinus: Yes normal facial exam Mouth: Normal oral and palatal mucosa present, oropharynx normal and moist mucous membranes Throat: Yes posterior oropharynx normal Eyes General: appearance normal, both eyes and all related structures Eyelids: Yes eyelids normal Conjunctivae: conjunctivae normal Sclerae: sclerae normal Pupils: Equal, round and reactive pupils present EOM: EOMs intact bilaterally Neck Neck: Yes normal visual inspection, Yes full ROM and Yes no lymphadenopathy Lymphatic: no lymphadenopathy noted Chest Chest palpation & inspection: normal inspection of the chest Resp Effort & Inspection: normal respiratory effort and able to speak in complete sentences Auscultation: clear to auscultation bilaterally, no crackles, no rales, no rhonchi and no wheezes Cardio Rate: regular rate Rhythm: regular rhythm Heart sounds: S1 normal heart sound present and S2 normal heart sound present GI Other: Abdomen is soft however diffusely tender throughout, more ttp in the RLQ, no rebound Inspection: Yes normal to inspection Skin General skin exam: no rashes or lesions noted Trauma: no lacerations or abrasions Wounds: no wounds Neuro General: patient oriented x3 and moves all extremities Cranial nerves: Yes Equal, round and reactive pupils present Extrem General: Yes normal to inspection Right upper extremity: normal to inspection Left upper extremity: normal to inspection Right lower extremity: normal to inspection Left lower extremity: normal to inspection Course Reevaluation(s) Reevaluation #1: Upon re-evaluation, patient is still complaining of pain. She is requesting that she does not receive any strong narcotic pain medication. Patient will be medicated with Toradol [address] scan. Time: 08:51 Reevaluation #2: CT returns, revealing normal appearing appendix, essentially unremarkable CT scan. Discussed findings with patient. She is still experiencing pain, now reporting more in the right upper quadrant region, will try GI cocktail as well as ultrasound right upper quadrant for further evaluation. Time: 11:50 Reevaluation #3: Ultrasound returns, revealing a positive Vazquez's sign however negative ultrasound. Patient is feeling much better after receiving GI cocktail. Discussed overall workup with patient. Patient feeling much better however patient is slightly hypotensive at 95/40. She is also reporting a headache. Will repeat blood pressure Time: 14:36 Additional Reevaluation(s): BP improved, pt feeling much better and eager for d/c. She is eating and drinking without return of sxs. Discussed return precautions. Pt stable for d/c. Medical Decision Making Medical Decision Making MDM Narrative: This is a 23-year-old female, with no known medical problems, who presents emergency department with complaints of abdominal pain, nausea and vomiting x3 days. On my initial assessment, patient visibly uncomfortable, rolling around in stretcher complaining of pain as well as nausea. She is actively vomiting. Difficult to get a history from secondary to her presentation, however patient is reporting right lower quadrant pain. Plan: Labs, EKG, UA, IV fluids, IV Zofran Differential Diagnosis Differential Diagnoses: The differential diagnosis associated with the presentation includes Appendicitis, diverticulitis, diverticulosis, gastritis, gastroenteritis, cyclical vomiting syndrome Admission/Observation Consideration of admission/observation: Escalation of care including admission/observation considered Lab Data MDM Lab Attestation statement: I reviewed the patient's lab results. No leukocytosis, H&H 11.1/31.2, Chem WNL. see course comment for other details. 01/19/24 07:42 01/19/24 07:42 Labs: Lab Results 01/19/24 01/19/24 Range/Units 07:42 14:35 WBC 8.0 (4.8-10.8) X10*3/uL RBC 3.66 L (4.20-5.50) X10*6/uL Hgb 11.1 L (12.0-16.0) g/dl Hct 31.2 L (37.0-47.0) % MCV 85.2 (80.0-98.0) fL MCH 30.3 (27.0-33.0) pg MCHC 35.6 H (31.0-35.0) g/dl RDW 11.5 (11.0-16.0) % Plt Count 213 (160-400) X10*3/uL MPV 10.3 (9.4-12.3) fL Immature Gran % (Auto) 0.5 H (0.0-0.4) % Neut % (Auto) 87.3 H (45-73) % Lymph % (Auto) 9.6 L (20-40) % [place] % (Auto) 2.4 (2-11) % Eos % (Auto) 0.0 (0-4) % Baso % (Auto) 0.2 (0-2) % Lymph # (Auto) 0.8 L (1.2-4.9) X10*3/uL [place] # (Auto) 0.2 (0.1-1.2) X10*3/uL Eos # (Auto) 0.0 (0.0-0.4) X10*3/uL Baso # (Auto) 0.0 (0.0-0.2) X10*3/uL Abs Immat Gran (auto) 0.04 H (0.00-0.03) X10*3/uL Absolute Neuts (auto) 7.0 (2.0-8.3) x10*3/uL Absolute Nucleated RBC 0.000 (0.0-0.012) X10*3/uL Nucleated RBC % (auto) 0.0 (0.0-0.2) /100WBC Sodium 142 (135-145) mmol/L Potassium 3.7 (3.3-5.1) mmol/L Chloride 112 H (96-108) mmol/L Carbon Dioxide 20 L (22-29) mmol/L Anion Gap 14 (12-20) BUN 12 (9-16) mg/dL Creatinine 0.66 (0.5-1.4) mg/dL Estim Creat Clear Calc 120.6 Estimated GFR > 60 Random Glucose 130 H (60-115) mg/dL Calcium 8.5 D (8.4-10.2) mg/dL Magnesium 1.6 (1.6-2.6) mg/dL Total Bilirubin 0.5 (0.0-1.0) mg/dL Direct Bilirubin 0.2 (0.0-0.5) mg/dL AST 35 H (5-31) U/L ALT 29 (0-31) U/L Alkaline Phosphatase 68 (39-117) U/L Troponin I High Sens < 2.7 (<3.5-17.0) ng/L Total Protein 7.0 (6.5-8.0) g/dL Albumin 4.1 (3.5-5.0) g/dL Lipase 11 (8-78) U/L Beta HCG, Quant < 2 mIU/mL Urine Color Yellow Urine Appearance Clear Urine pH 6.5 (5.0-9.0) Ur Specific [place] >= 1.030 H (1.005-1.025) Urine Protein 30 (1+) H (Neg-Trace) mg/dL Urine Glucose (UA) Negative (Negative) mg/dL Urine Ketones 40 (Negative) mg/dL Urine Blood Large (3+) H (Negative) Urine Nitrite Negative (Negative) Ur Leukocyte Esterase Negative (Negative) Urine RBC 6-10 H (0-2) /HPF Urine WBC 0-5 (0-5) /HPF Ur Squamous Epith Cells 6-10 (0-2) /HPF Urine Bacteria None Seen (None Seen) Hyaline Casts 0-2 (0-2) /LPF Urine Opiates Screen Not Detected (Not Detect) Ur Buprenorphine Scrn Not Detected (Not Detect) ng/mL Ur Oxycodone Screen Not Detected (Not Detect) ng/mL Urine Methadone Screen Not Detected (Not Detect) ng/mL Urine Fentanyl Screen Not Detected (Not Detect) Ur Barbiturates Screen Not Detected (Not Detect) Ur Phencyclidine Scrn Not Detected (Not Detect) Ur Amphetamines Screen Not Detected (Not Detect) U Benzodiazepines Scrn Not Detected (Not Detect) Urine Cocaine Screen Not Detected (Not Detect) U Marijuana (THC) Screen POSITIVE H (Not Detect) Ethyl Alcohol < 10 mg/dL Influenza Type A (PCR) NEGATIVE (Negative) Influenza Type B (PCR) NEGATIVE (Negative) RSV RNA Qual (PCR) NEGATIVE (Negative) SARS-CoV-2 RNA (RT-PCR) NEGATIVE (Negative) Radiology Impression Discussion of test interpretation with radiology: I have reviewed the radiologist's reading. Radiologist Impression: US/US abdomen limited IMPRESSION: Technologist reports positive sonographic Vazquez's sign. Otherwise unremarkable ultrasonographic evaluation of the gallbladder and common bile duct. Electronically signed by: Yunior Tolliver MD 01/19/2024 01:52 PM EDT Dictated By: CT/CT abdomen pelvis w IV con IMPRESSION: Essentially unremarkable CT scans of the abdomen and pelvis with intravenous contrast only. Electronically signed by: Yunior Tolliver MD 01/19/2024 10:14 AM EDT Dictated By: Yunior Tolliver Medications Administered Discontinued Medications Generic Name Dose Route Start Last Admin Trade Name Freq PRN Reason Stop Dose Admin Acetaminophen 975 mg 01/19/24 14:42 01/19/24 15:03 Acetaminophen 325 Mg Tablet PO 01/19/24 14:43 975 mg ONCE ONE Administration Al Hydroxide/Mg Hydroxide 30 ml 01/19/24 11:56 01/19/24 12:12 Magnesium Hydrox/Alum Hydrox 30 Ml Oral.Susp PO 01/19/24 11:57 30 ml ONCE ONE Administration Belladonna Alkaloids/Phenobarbital 10 ml 01/19/24 11:56 01/19/24 12:12 Phenobarb/Hyoscy/Atropine/Scop 10 Ml Elixir PO 01/19/24 11:57 10 ml ONCE ONE Administration Diphenhydramine HCl 50 mg 01/19/24 07:26 01/19/24 07:43 Diphenhydramine Hcl 50 Mg/Ml Vial IVPUSH 01/19/24 07:27 50 mg ONCE ONE Administration Sodium Chloride 1,000 mls @ 999 mls/hr 01/19/24 06:45 01/19/24 09:00 Ns IV 01/19/24 07:45 Infused .Q1H1M SHIVANI Infusion Sodium Chloride 1,000 mls @ 999 mls/hr 01/19/24 14:45 01/19/24 16:55 Ns IV 01/19/24 16:45 Not Given .Q1H1M SHIVANI Iohexol 85 ml 01/19/24 08:38 01/19/24 08:38 Iohexol 350 Mg/Ml 75 Ml Infus..Btl IV 01/19/24 08:39 85 ml ONCE ONE Administration Ketorolac Tromethamine 30 mg 01/19/24 08:51 01/19/24 09:17 Ketorolac Tromethamine 30 Mg/Ml Vial IVPUSH 01/19/24 08:52 30 mg ONCE ONE Administration Lidocaine HCl 15 ml 01/19/24 11:56 01/19/24 12:12 Lidocaine Hcl Viscous 2 % 15 Ml Solution MUCOUS MEM 01/19/24 11:57 15 ml ONCE ONE Administration Metoclopramide HCl 10 mg 01/19/24 07:26 01/19/24 07:43 Metoclopramide Hcl 10 Mg/2 Ml Vial IVPUSH 01/19/24 07:27 10 mg ONCE ONE Administration Ondansetron HCl 4 mg 01/19/24 06:36 01/19/24 07:05 Ondansetron Hcl 4 Mg/2 Ml Vial IVPUSH 01/19/24 06:37 4 mg ONCE ONE Administration Discharge Plan Discharge Clinical Impression: Abdominal pain Patient Disposition: Home, Self-Care Instructions: Acute Abdominal Pain (ED) Additional Instructions: You were seen in the emergency room due to nausea, vomiting, and diarrhea. Your workup today was reassuring. Please drink plenty of fluids get plenty of rest. Stick to a bland diet, avoid spicy or fried foods. Advance your diet over the next couple of days. You may continue taking Zofran as needed for nausea. If any new or worsening symptoms occur including but not limited to severe abdominal pain, inability to eat or drink secondary to nausea or vomiting, please return or seek emergent care. Please follow-up with your primary care physician regarding this visit. Prescriptions: New ondansetron 4 mg tablet,disintegrating 4 mg PO Q6-8H PRN (Reason: nausea) Qty: 14 0RF No Action famotidine [Pepcid] 20 mg tablet 20 mg PO DAILY PRN (Reason: abdominal discomfort) Qty: 30 0RF ondansetron 4 mg tablet,disintegrating 4 mg PO Q8H PRN (Reason: nausea and vomiting) Qty: 20 0RF famotidine [Pepcid] 20 mg tablet 20 mg PO DAILY 30 Days Qty: 30 0RF morphine 15 mg tablet 15 mg PO Q8H PRN (Reason: severe pain (scale score 7-10)) Qty: 6 0RF Rx Instructions: Partial Fill upon patient request. cyclobenzaprine 10 mg tablet 10 mg PO TID PRN (Reason: muscle spasm) Qty: 10 0RF ibuprofen 600 mg tablet 600 mg PO Q8H PRN (Reason: pain) Qty: 14 0RF ondansetron 4 mg tablet,disintegrating 4 mg PO Q8H PRN (Reason: nausea and vomiting) Qty: 20 0RF ibuprofen 600 mg tablet 600 mg PO TID 7 Days Qty: 21 0RF Interventions: ED Discharge Assessment Last Done: 01/19/24 17:31 Discharge Date/Time: 01/19/24 17:45 Print Language: Ecuadorean
[2024-01-19] MEDS: 0.9 % Sodium Chloride 1,000 ML 999 ML IV ×2 (07:05→15:03)
[2024-01-19] MEDS: ondansetron HCL 4 MG/2 ML VIAL IVPUSH (07:05)
--- NOTE | 2024-01-19 07:11 | ECG_ITS ---
Test Reason : abd pain Blood Pressure : / mmHG Vent. Rate : 064 BPM Atrial Rate : 064 BPM P-R Int : 154 ms QRS Dur : 088 ms QT Int : 434 ms P-R-T Axes : 061 038 018 degrees QTc Int : 447 ms Normal sinus rhythm with sinus arrhythmia Normal ECG No previous ECGs available Referred By: Tiffanie Vallejo Electronically Signed By:SALINA SMITH
[2024-01-19] MEDS: Metoclopramide HCl 10 MG/2 ML VIAL IVPUSH (07:43)
[2024-01-19] MEDS: diphenhydrAMINE HCL 50 MG/ML VIAL IVPUSH (07:43)
[2024-01-19 07:49] LABS: MANUAL DIFF FLAG NO
[2024-01-19 07:54] LABS: Basophils Percent Auto 0.2 % (0-2); Hematocrit 31.2 % (37.0-47.0); Hemoglobin 11.1 g/dl (12.0-16.0); Imm Gran Abs Auto 0.04 X10*3/uL (0.00-0.03); Imm Gran Pct Auto 0.5 % (0.0-0.4); Lymphocytes Absolute Auto 0.8 X10*3/uL (1.2-4.9); Lymphocytes Percent Auto 9.6 % (20-40); Mean Corpuscular HGB Conc 35.6 g/dl (31.0-35.0); Mean Corpuscular Hemoglobin 30.3 pg (27.0-33.0); Mean Corpuscular Volume 85.2 fL (80.0-98.0); Mean Platelet Volume 10.3 fL (9.4-12.3); Monocytes Absolute Auto 0.2 X10*3/uL (0.1-1.2); Monocytes Percent Auto 2.4 % (2-11); Neutrophils Percent Auto 87.3 % (45-73); Platelet Count 213 X10*3/uL (160-400); Red Blood Count 3.66 X10*6/uL (4.20-5.50); Red Cell Distribution Width 11.5 % (11.0-16.0)
[2024-01-19 08:06] LABS: Ethanol < 10 mg/dL
[2024-01-19 08:12] LABS: Alanine Aminotransferase 29 U/L (0-31); Albumin Level 4.1 g/dL (3.5-5.0); Alkaline Phosphatase 68 U/L (39-117); Anion Gap 14 (12-20); Aspartate Amino Transferase 35 U/L (5-31); Bilirubin Direct 0.2 mg/dL (0.0-0.5); Bilirubin Total 0.5 mg/dL (0.0-1.0); Blood Urea Nitrogen 12 mg/dL (9-16); Calcium 8.5 mg/dL (8.4-10.2); Carbon Dioxide 20 mmol/L (22-29); Chloride 112 mmol/L (96-108); Creatinine Clr Calc Pharmacy 120.6; Estimated Glomerular Filt Rate > 60; Glucose Random 130 mg/dL (60-115); Lipase 11 U/L (8-78); Magnesium 1.6 mg/dL (1.6-2.6); Potassium 3.7 mmol/L (3.3-5.1); Sodium 142 mmol/L (135-145)
[2024-01-19 08:18] LABS: HCG Quantitative < 2 mIU/mL; Troponin-I High Sensitivity < 2.7 ng/L (<3.5-17.0)
[2024-01-19] MEDS: iohexoL 350 MG/ML 75 ML INFUS..BTL 85 ML IV (08:38)
[2024-01-19 08:43] LABS: Influenza A PCR NEGATIVE (Negative); Influenza B PCR NEGATIVE (Negative); Resp Syncy Virus RNA Qual PCR NEGATIVE (Negative); SARS COV2 PCR INHOUSE NEGATIVE (Negative)
[2024-01-19] MEDS: Ketorolac Tromethamine 30 MG/ML VIAL IVPUSH (09:17)
--- NOTE | 2024-01-19 09:20 | PC.NURSE ---
this nurse took report and assumed care at 9am, pt sleeping/woke to verbal stimulus and is a&ox3, vss, pt c/o rlq abd pain 12/28, pt medicated with toradol for pain, call fish within reach, will continue to monitor
[2024-01-19] MEDS: Lidocaine HCl Viscous 2 % 15 ML SOLUTION MUCOUS MEM (12:12)
[2024-01-19] MEDS: PHENobarb/Hyoscy/Atropine/Scop 10 ML ELIXIR PO (12:12)
[2024-01-19] MEDS: Magnesium Hydrox/Alum Hydrox 30 ML ORAL.SUSP PO (12:12)
--- NOTE | 2024-01-19 12:38 | PC.NURSE ---
pt medicated for gi cocktail per order for abd pain
[2024-01-19 14:44] LABS: Appearance Urine Clear; Color Urine Yellow; Glucose Urine UA Negative (Negative); Leukocyte Esterase Urine Negative (Negative); Nitrite Urine Negative (Negative); PH 6.5 (5.0-9.0); Specific Gravity - Urine >= 1.030 (1.005-1.025); UMIC TRIGGER UACC YES; Urine Blood Large (3+) (Negative); Urine Ketones 40 mg/dL (Negative); Urine Protein 30 (1+) mg/dL (Neg-Trace)
[2024-01-19 14:57] LABS: Amphetamine Screen Urine Not Detected (Not Detect); Barbiturates, Urine Not Detected (Not Detect); Benzodiazepines Screen Urine Not Detected (Not Detect); Buprenorphine Scr Not Detected (Not Detect); Cannabinoid Screen Urine POSITIVE (Not Detect); Cocaine Screen Urine Not Detected (Not Detect); Fentanyl, urine Not Detected (Not Detect); Methadone Screen, Urine Not Detected (Not Detect); Opiate Screen Urine Not Detected (Not Detect); Oxycodone Screen Urine Not Detected (Not Detect); Phencyclidine Screen Urine Not Detected (Not Detect)
[2024-01-19] MEDS: Acetaminophen 325 MG TABLET 975 MG PO (15:03)
[2024-01-19 15:25] LABS: Bacteria Urine None Seen (None Seen); Hyaline Casts Urine 0-2 /LPF (0-2); WBC Urine 0-5 /HPF (0-5)
--- NOTE | 2024-01-19 15:30 | PC.NURSE ---
pt a&ox3, pt was hypotensive- provider notified and pt also c/o headache, pt medicated with tylenol for headache and IVF were started. will continue to monitor
== END 2024-01-19 17:45 | disposition home or self-care (01) ==
PROVIDERS: Physician Assistant Medical; Emergency Provider Emergency Medicine
DX: R10.11 Right upper quadrant pain (principal); M25.512 Pain in left shoulder; Z03.818 Encounter for observation for suspected exposure to other biological agents ruled out; R51.9 Headache, unspecified; F12.90 Cannabis use, unspecified, uncomplicated
CPT/HCPCS: 0241U; 36415; 74177; 76705; 80048; 80076; 80307; 81001; 83690; 83735; 84484; 84702; 85025; 93005; 96361; 96374; 96375; 99284; 99285; J1200; J1885; J2405; J2765; Q9967

== ENCOUNTER 2024-04-06 09:21 | Emergency (ER) | payer OTHER, SELFPAY ==
--- NOTE | ~2024-04-06 | XR_ITS ---
EXAMINATION: XR KNEE, RIGHT CLINICAL INFORMATION: Fall, pain COMPARISON: None available. TECHNIQUE: Four views of the right knee. FINDINGS: No fracture or joint effusion. Alignment is anatomic. Joint spaces are maintained. No abnormal soft tissue calcification. XR/XR knee RT 3V IMPRESSION: Unremarkable plain radiographs of the right knee. Electronically signed by: Charly Alvarez MD 04/06/2024 10:27 AM [facility]
[2024-04-06 09:30] VITALS: BP 104/64; PULSE 78; RESP 16; TEMP 36.8; O2SAT 100; BMI 32.4
--- NOTE | 2024-04-06 09:52 | ED_ITS ---
HPI - Extremity Problem General Chief complaint: Extremity Problem Stated complaint: R knee pain Time Seen by Provider: 04/06/24 09:38 Source: patient and RN notes reviewed Mode of arrival: ambulatory Limitations: no limitations History of Present Illness ED Provider: Tiffanie Vallejo PA-C HPI Narrative: This is a 23-year-old female who presents emergency department with complaints of right knee pain x 1 month. Patient reports that she accidentally tripped and fell while running 1 month ago and landed directly onto her right knee. She states that she immediately had pain in her right knee, she was able to weightbear afterwards however states that this caused her to have pain. She states that over the course of the last month, she has been using a knee brace which has provided her without much relief. She does report pain worsens with ambulation, and states that her knee occasionally gives out on her. Denies history of meet problems in the past. No other complaints or concerns at this time. MD Complaint: extremity pain Pain Consistency: constant Location: right and lower extremity Quality: aching Relieving factors: immobilization Exacerbating factors: range of motion, weight bearing, walking and palpation Associated symptoms: denies other symptoms Related Data Previous Rx's ?Medication ?Instructions ?Recorded ibuprofen 600 mg tablet 600 mg PO TID 7 days #21 tabs 04/06/21 famotidine 20 mg tablet (Pepcid) 20 mg PO DAILY PRN abdominal 02/19/22 discomfort #30 tabs ondansetron 4 mg disintegrating 4 mg PO Q8H PRN nausea and 02/19/22 tablet vomiting #20 tabs ondansetron 4 mg disintegrating 4 mg PO Q8H PRN nausea and 05/07/23 tablet vomiting #20 tabs famotidine 20 mg tablet (Pepcid) 20 mg PO DAILY 30 days #30 tabs 06/20/23 cyclobenzaprine 10 mg tablet 10 mg PO TID PRN muscle spasm #10 12/01/23 tabs ibuprofen 600 mg tablet 600 mg PO Q8H PRN pain #14 tabs 12/01/23 morphine 15 mg immediate release 15 mg PO Q8H PRN severe pain 12/01/23 tablet (scale score 7-10) #6 tabs ondansetron 4 mg disintegrating 4 mg PO Q6-8H PRN nausea #14 tabs 10/01/24 tablet acetaminophen 500 mg tablet 500 - 1,000 mg (1 - 2 x 500 mg) PO 04/06/24 (Tylenol Extra Strength) Q6H PRN pain #30 tabs ibuprofen 600 mg tablet 600 mg PO Q8H PRN pain #30 tabs 04/06/24 Allergies Allergy/AdvReac Type Severity Reaction Status Date / Time No Known Allergies Allergy Verified 04/06/24 09:31 Review of Systems Review of Systems: Yes all other systems are reviewed and are negative Constitutional: Constitutional: Reports as per [facility] Past Medical History Medical History History of Blurred vision, bilateral Family history of systemic lupus erythematosus (SLE) in mother Arthralgia Hx of one miscarriage Surgical History Hx of section History of dilatation and curettage Family History Family History Mother SLE (systemic lupus erythematosus) Depression Social History Social History Alcohol intake: current Alcohol intake frequency: holidays/special occasions only Patient Tobacco Use Status: Never used Tobacco Substance Use Type: Marijuana Advance Directives: No Advance Directives Information Provided: Yes Physical Exam Vital Signs: Vital Signs: Last Vital Signs Temp 98.3 F 04/06/24 09:30 Pulse 78 04/06/24 09:30 Resp 16 04/06/24 09:30 BP 104/64 04/06/24 09:30 Pulse Ox 100 04/06/24 09:30 O2 Del Method Room Air 04/06/24 09:30 BMI result Body Mass Index 32.4 Const: General: cooperative, comfortable and no acute distress Orientation/consciousness: patient oriented x3 Limitations: no limitations HEENT: Head: Yes normal to inspection, Yes normocephalic and Yes atraumatic Ears: hearing grossly normal bilaterally General nose exam: Normal external nose present Face and sinus: Yes normal facial exam Mouth: Normal oral and palatal mucosa present, oropharynx normal and moist mucous membranes Throat: Yes posterior oropharynx normal Eyes: General: appearance normal, both eyes and all related structures Eyelids: Yes eyelids normal Conjunctivae: conjunctivae normal Sclerae: sclerae normal Pupils: Equal, round and reactive pupils present EOM: EOMs intact bilaterally Neck: Neck: Yes normal visual inspection, Yes full ROM and Yes no lymphadenopathy Lymphatic: no lymphadenopathy noted Chest: Chest palpation & inspection: normal inspection of the chest Resp: Effort & Inspection: normal respiratory effort and able to speak in complete sentences Auscultation: clear to auscultation bilaterally, no crackles, no rales, no rhonchi and no wheezes Cardio: Rate: regular rate Rhythm: regular rhythm Heart sounds: S1 normal heart sound present and S2 normal heart sound present GI: Inspection: Yes normal to inspection Skin: General skin exam: no rashes or lesions noted Trauma: no lacerations or abrasions Wounds: no wounds Neuro: General: patient oriented x3 and moves all extremities Cranial nerves: Yes Equal, round and reactive pupils present Extrem: Other: Right knee with tenderness palpation along the patellar surface and right medial joint line. Pain with range of motion, unable to fully extend leg secondary to pain. Able to flex knee to about 70?. Strong DP pulse, no obvious bony deformity. Slight edema noted throughout knee joint. No calf tenderness. No overlying skin changes or warmth. No joint laxity with varus and valgus strain, does have pain with this. Negative anterior-posterior drawer test. General: Yes normal to inspection Right upper extremity: normal to inspection Left upper extremity: normal to inspection Right lower extremity: normal to inspection Left lower extremity: normal to inspection Course Reevaluation(s) Reevaluation #1: X-rays reviewed, no bony abnormality seen. Discussed findings with patient. Patient placed in knee immobilizer, crutches, given orthopedic referral. Given strict return precautions. She understands and agrees with plan. Patient stable for discharge. Time: 10:31 Medications Administered Discontinued Medications Generic Name Dose Route Start Last Admin Trade Name Freq PRN Reason Stop Dose Admin Acetaminophen 975 mg 04/06/24 10:27 04/06/24 10:36 Acetaminophen 325 Mg Tablet PO 04/06/24 10:28 975 mg ONCE ONE Administration Medical Decision Making Medical Decision Making [facility] Narrative: This is a 23-year-old female who presents emergency department with complaints of right knee pain x1 month. Patient had a mechanical fall and landed directly on her right knee. She has been able to walk however states instability as well as worsening pain with weight-bearing. On arrival, vital signs within normal limits. She is speaking in full sentences under no acute distress. Patient has tenderness palpation along the patella as well as medial joint line pain with varus and valgus strain, no joint laxity. Differential diagnoses include fracture, strain, sprain, internal ligamentous derangement of the right knee. Will obtain x-rays to rule out any bony abnormality. Patient medicated with Tylenol 1 g in the department. Differential Diagnosis Differential Diagnoses: The differential diagnosis associated with the presentation includes See above Radiology Impression Discussion of test interpretation with radiology: I have reviewed the radiologist's reading. Radiologist Impression: EXAMINATION: XR KNEE, RIGHT CLINICAL INFORMATION: Fall, pain COMPARISON: None available. TECHNIQUE: Four views of the right knee. FINDINGS: No fracture or joint effusion. Alignment is anatomic. Joint spaces are maintained. No abnormal soft tissue calcification. XR/XR knee RT 3V IMPRESSION: Unremarkable plain radiographs of the right knee. Electronically signed by: Charly Alvarez MD 04/06/2024 10:27 AM [facility] Dictated By: Charly Alvarez MD Discharge Plan Discharge Clinical Impression: Contusion of knee, Sprain of right knee Patient Disposition: Home, Self-Care Instructions: Knee Sprain (ED), Crutch Instructions (ED), Contusion in Adults (ED) Additional Instructions: You were seen in the emergency department due to ongoing right knee pain. Your x-rays do not show any broken bones. It is concerning that you may have injured 1 of the ligaments in your knee therefore it is very important that you follow-up with the internet network specialist. The internet network specialist can further evaluate your right knee, and refer you to physical therapy and or order any other diagnostic images to determine whether not this is a ligament injury. Call today to make an appointment We placed you in a knee immobilizer, given crutches, it is very important that you use this as it can prevent further damage to the ligaments in your knee. Ice, rest, and elevate your knee as needed. Alternate between ibuprofen and or Tylenol as needed for pain. If any new or worsening symptoms occur including but not limited to severe knee pain, calf pain, chest pain, shortness of breath, please seek emergent care. Prescriptions: New ibuprofen 600 mg tablet 600 mg PO Q8H PRN (Reason: pain) Qty: 30 0RF acetaminophen [Tylenol Extra Strength] 500 mg tablet 500 - 1,000 mg PO Q6H PRN (Reason: pain) Qty: 30 0RF No Action famotidine [Pepcid] 20 mg tablet 20 mg PO DAILY PRN (Reason: abdominal discomfort) Qty: 30 0RF ondansetron 4 mg tablet,disintegrating 4 mg PO Q8H PRN (Reason: nausea and vomiting) Qty: 20 0RF famotidine [Pepcid] 20 mg tablet 20 mg PO DAILY 30 Days Qty: 30 0RF morphine 15 mg tablet 15 mg PO Q8H PRN (Reason: severe pain (scale score 7-10)) Qty: 6 0RF Rx Instructions: Partial Fill upon patient request. cyclobenzaprine 10 mg tablet 10 mg PO TID PRN (Reason: muscle spasm) Qty: 10 0RF ibuprofen 600 mg tablet 600 mg PO Q8H PRN (Reason: pain) Qty: 14 0RF ondansetron 4 mg tablet,disintegrating 4 mg PO Q6-8H PRN (Reason: nausea) Qty: 14 0RF ondansetron 4 mg tablet,disintegrating 4 mg PO Q8H PRN (Reason: nausea and vomiting) Qty: 20 0RF ibuprofen 600 mg tablet 600 mg PO TID 7 Days Qty: 21 0RF Referrals: [facility] [Provider Group] Stand Alone Forms: Work/School Release Print Language: Polish
[2024-04-06] MEDS: Acetaminophen 325 MG TABLET 975 MG PO (10:36)
[2024-04-06 11:23] VITALS: BP 104/64; PULSE 78; RESP 16; TEMP 36.8; O2SAT 100
== END 2024-04-06 11:24 | disposition home or self-care (01) ==
PROVIDERS: Emergency Provider Emergency Medicine; PCP Nurse Practitioner Family
DX: S80.01XA Contusion of right knee, initial encounter (principal); S83.91XA Sprain of unspecified site of right knee, initial encounter; W01.0XXA Fall on same level from slipping, tripping and stumbling without subsequent striking against object, initial encounter; Y93.89 Activity, other specified; Y92.89 Other specified places as the place of occurrence of the external cause; Y99.8 Other external cause status
CPT/HCPCS: 73562; 99283

== ENCOUNTER 2024-04-16 09:07 | Outpatient (AMB) | payer OTHER, SELFPAY ==
--- NOTE | 2024-04-16 10:01 | MHC.OFFWIV ---
Intake Vital Signs 04/16/24 10:02 Height 5 ft 1 in Weight 177 lb BMI 33.4 BP 110/72 Blood Pressure Location Rt brachial Position Sitting Pulse 76 Pulse Source Pulse Oximeter Temp 98.2 F Temp Source Oral Pulse Oximetry (%) 98 Oxygen Delivery Method Room Air Intake Visit Reasons: EP cold, ears are blocked Intake Note: Patient here for bilat ear blockage that has been present since the . Patient Tobacco Use Status: Never used Tobacco Allergies No Known Allergies Allergy (Verified 06/02/24 10:04) Do you need a note to return to daycare/school/sports/work: No HPI EP cold, ears are blocked HPI Details Patient is a 23-year-old female comes to the walk-in clinic complaining of respiratory symptoms and associated viral symptoms since [place] gathering 3 days ago. She reports that she has developed a cough, blocked feeling to the ears, and gets short of breath with exertion. She has apparently had reactive airway symptoms in the past, for which she has used her mother's albuterol, however she denies that she has asthma or history of diagnosed reactive airway. She reports she did not have access to the albuterol since these most recent symptoms started, and has not tried it yet. She denies coughing fits or uncontrolled coughing, chest pain or shortness of breath currently. No tobacco smoking history, but she does smoke marijuana. No report of weakness or dizziness or vertigo, severe headache, sore throat, nausea vomiting or diarrhea, fever or chills, malaise or myalgias, loss of sense of taste or smell, or other significant associated symptoms. [facility] Medical History History of Blurred vision, bilateral Family history of systemic lupus erythematosus (SLE) in mother Arthralgia Hx of one miscarriage Surgical History Hx of section History of dilatation and curettage Family History Mother SLE (systemic lupus erythematosus) Depression Social History (Updated 06/02/24 @ 10:05 by Quintin Hartman) Alcohol intake: current Alcohol intake frequency: holidays/special occasions only Patient Tobacco Use Status: Never used Tobacco Substance Use Type: Marijuana Current occupational status: employed Current occupation: [employer]OR Female Reproductive History Menstrual Age of Menarche: 10 Review of Systems Const All systems reviewed & are unremarkable except as noted in HPI and below Physical Exam Vital Signs: Last Vital Signs Temp 98.2 F 04/16/24 10:02 Pulse 76 04/16/24 10:02 BP 110/72 04/16/24 10:02 Pulse Ox 98 04/16/24 10:02 Oxygen Delivery Method Room Air 04/16/24 10:02 BMI result Body Mass Index 33.4 Const General: cooperative, comfortable, no acute distress, alert, awake, Physically active, ill appearing and well groomed; No in distress, anxious, diaphoretic, intoxicated appearing, poor hygiene or tired appearing Nutritional Appearance: average body habitus Orientation/consciousness: oriented to time Limitations: no limitations HEENT Head: Yes normal to inspection, Yes normocephalic and Yes atraumatic Ears: hearing grossly normal bilaterally, external ears normal, EAC's normal and TM abnormal erythematous, with fluid behind the TM and with loss of landmarks General nose exam: Normal external nose present, Normal nares present, No nasal polyps present, Normal nasal mucous membranes and turbinates present, Normal septum present and No nasal discharge present Face and sinus: Yes normal facial exam, Yes sinuses nontender and Yes face symmetric Mouth: Normal oral and palatal mucosa present, lip normal and tongue normal Throat: Yes abnormal tonsil (mildly erythematous bilaterally), No peritonsillar mass, No postnasal drainage, No uvular edema and No cobblestoning Eyes General: appearance normal, both eyes and all related structures Neck Neck: Yes normal visual inspection, Yes no lymphadenopathy, Yes trachea midline, Yes supple and No anterior neck swelling Chest Chest palpation & inspection: normal palpation of entire chest wall Resp Effort & Inspection: normal respiratory effort, able to speak in complete sentences, no audible wheezes, Actively coughing, no grunting, not labored, no nasal flaring, no respiratory distress, no retractions, no stridor, not tachypneic, no tripod positioning, no use of accessory muscles, No prolonged expiratory phase and symmetric chest movement Auscultation: no crackles, no rales, no rhonchi, no wheezes, lung sounds not diminished and No rub present Cardio Palpation: normal PMI Rate: regular rate Rhythm: regular rhythm Heart sounds: S1 normal heart sound present and S2 normal heart sound present Skin Other: Good color, warm and dry Neuro General: oriented to time Psych Appearance: grossly normal Mental Status: mental status grossly normal Speech and movement: Normal speech and movement present Affect: normal affect Attitude: cooperative Thought process: Normal thought process present Insight: Good insight present (Psych) Judgement: Good judgement present (Psych) Results Reviewed Results Reviewed: Plain film two view chest x-ray shows left-sided density consistent with pneumonia. Assessment & Plan Assessment & Plan (1) Community acquired pneumonia: Code(s): J18.9 - Pneumonia, unspecified organism Qualifiers: Laterality: left Lung location: upper lobe of lung Qualified Code(s): J18.9 - Pneumonia, unspecified organism Plan Patient is a 23-year-old female with underlying immuno compromising condition who comes to the walk-in clinic complaining of shortness of breath with exertion after viral syndrome. Her flu COVID and RSV results are pending. She is overall stable, and shows no workup breathing at rest, however her plain film chest x-ray shows opacity on the left side, so I will treat empirically with Augmentin for suspected pneumonia (as well as otitis media bilaterally) along with a course of azithromycin. I will also refill her albuterol inhaler so she can use as needed and she can trial benzonatate capsules for the cough. We discussed following up to be sure that her chest x-ray is improving, and especially if symptoms are not improving, or going to the emergency department with worrisome symptoms. Orders: Orders SARS-CoV2/FLU/RSV 04/16/24 J06.9 - Acute upper respiratory infection, unspecified XR chest 2V 04/16/24 R05.9 - Cough, unspecified Medications: New azithromycin take 500 mg today (day 1), then 250 mg for 4 days (days 2-5) PO 6 tabs 0RF albuterol sulfate 90 mcg/actuation 1 inh inhalation QID PRN 8.5 grams 0RF shortness of breath or wheezing 1 week benzonatate 100 mg PO BID-TID PRN 30 caps 0RF cough 1 week amoxicillin-pot clavulanate 875-125 mg 1 tab PO BID 14 tabs 0RF 7 days benzonatate 200 mg PO BID-TID PRN 30 caps 0RF cough Coding Level of Care Code Est Pt Level 4 (90388) Diagnoses Community acquired pneumonia of left upper lobe of lung J18.9 Laterality: left Lung location: upper lobe of lung
[2024-04-16 10:02] VITALS: BP 110/72; PULSE 76; TEMP 36.8; O2SAT 98; BMI 33.4
== END 2024-04-16 11:18 | disposition home or self-care (01) ==
PROVIDERS: PCP Nurse Practitioner Family; Visit Provider Physician Assistant Medical
DX: J18.9 Pneumonia, unspecified organism (principal)

== ENCOUNTER 2024-04-16 09:07 | Outpatient (REF) | payer OTHER, SELFPAY ==
--- NOTE | ~2024-04-16 | XR_ITS ---
CLINICAL HISTORY: R05.9 - Cough, unspecified 2 view chest x-ray Comparison: None Findings: Dense heterogeneous airspace opacity within the left lung with involvement of the left upper lobe and lingula. Normal size heart. No acute fracture. IMPRESSION: Heterogeneous airspace opacity within the left lung, compatible with pneumonia. This document has been electronically signed by: Tracie Silveira MD on 04/16/2024 15:24:09
== END 2024-04-16 09:08 | disposition home or self-care (01) ==
LOC: HO.HMGCX 09:07
PROVIDERS: PCP Nurse Practitioner Family; Visit Provider Physician Assistant Medical
DX: R05.9 Cough, unspecified (principal)
CPT/HCPCS: 71046

== ENCOUNTER → 2024-04-16 10:39 | Outpatient (BNV) | payer OTHER, SELFPAY | PROVIDERS: PCP Nurse Practitioner Family; Visit Provider Radiology Diagnostic Radiology | DX: R91.8 Other nonspecific abnormal finding of lung field (principal); R05.9 Cough, unspecified | CPT/HCPCS: 71046 ==

== ENCOUNTER 2024-04-16 14:09 | Outpatient (REF) | payer OTHER, SELFPAY ==
[2024-04-16 15:11] LABS: Influenza A PCR NEGATIVE (Negative); Influenza B PCR NEGATIVE (Negative); Resp Syncy Virus RNA Qual PCR NEGATIVE (Negative); SARS COV2 PCR INHOUSE NEGATIVE (Negative)
== END 2024-04-16 14:10 | disposition home or self-care (01) ==
LOC: HO.LNP 14:09
PROVIDERS: Visit Provider Physician Assistant Medical
DX: J06.9 Acute upper respiratory infection, unspecified (principal)
CPT/HCPCS: 0241U

== ENCOUNTER 2024-06-02 08:55 | Outpatient (REF) | payer OTHER, SELFPAY ==
--- OUTSIDE RECORDS SUMMARY | 2024-06-03 09:21 | XMS_ITS | Clinical Summary ---
Author Organization [facility] ity Address [address] [place] [address] Care Team Providers Care [employer] Name Role Phone Unavailable Primary Care Provider [...]
== END 2024-06-02 08:56 | disposition home or self-care (01) ==
LOC: HO.HOSX 08:55
PROVIDERS: Visit Provider Physician Assistant
DX: S80.01XA Contusion of right knee, initial encounter (principal)
CPT/HCPCS: 99202

== ENCOUNTER 2024-06-02 09:42 | Outpatient (AMB) | payer OTHER, SELFPAY ==
--- NOTE | 2024-06-02 09:56 | MHC.OFFVIS ---
Vital Signs 06/02/24 10:04 Height 5 ft 1 in Weight 177 lb BMI 33.4 Intake Visit Reasons: New Pt - Right Knee Pain Intake Note: Yeimy is a 23 year old female who presents today as a new patient for a evaluation of her right knee pain, DOI 03/12/24. Patient states when she slipped and feel on black ice when she felt her knee twisted inward and heard a snap. Patient was given a knee immobilizer and crutches which didn't give her relief. She also informed she has two other injuries after which is making her pain worse and move down to her ankle. Patient She mentions that her pain is on the medial aspect of the knee. Patient notices that her pain is worse when she is walking, standing and going and down the stairs. She has tried and failed knee brace, and taking NSAIDs. Allergies No Known Allergies Allergy (Verified 06/02/24 10:04) HPI HPI New Pt - Right Knee Pain: Details: Ms. Hartman is a 23-year-old female who presents to the office today for evaluation of right knee pain. Initially, the patient reports that in February she fell landing directly onto the right knee causing pain. Subsequently, the patient reports several minor repeat knee injuries to the right knee since. She describes episodes of giving out and hyperextension. She has not had any treatment other than presenting to the ED on [id number] where x-rays were obtained and were negative for any acute fracture dislocation. [facility], [facility] Medical History History of Blurred vision, bilateral Family history of systemic lupus erythematosus (SLE) in mother Arthralgia Hx of one miscarriage Surgical History Hx of section History of dilatation and curettage Family History Mother SLE (systemic lupus erythematosus) Depression Social History (Updated 06/02/24 @ 10:05 by Quintin Hartman) Alcohol intake: current Alcohol intake frequency: holidays/special occasions only Patient Tobacco Use Status: Never used Tobacco Substance Use Type: Marijuana Current occupational status: employed Current occupation: [employer] Female Reproductive History Menstrual Age of Menarche: 10 Review of Systems Const All systems reviewed & are unremarkable except as noted in HPI and below Physical Exam Vital Signs: BMI result Body Mass Index 33.4 Const General: cooperative, healthy appearing and no acute distress Resp Effort & Inspection: normal respiratory effort and able to speak in complete sentences Cardio Rate: regular rate Peripheral pulses: Peripheral pulses 2+ throughout Skin Lesions: no lesions Rashes: no rashes Extrem Other: Right knee small superficial. Roughly golf ball size along the anterior lateral aspect of the proximal tibia. Patient is able to demonstrate full range of motion. Tenderness to palpation along the medial joint line and medial aspect of the patella. Positive patellar grind on the medial aspect. Negative Shola's. Negative anterior drawer. NVI. Assessment & Plan Assessment & Plan (1) Contusion of right knee: Code(s): S80.01XA - Contusion of right knee, initial encounter Category: Medical Plan Ms. Hartman is a 23-year-old female who presents to the office today for evaluation of right knee pain. Initially, the patient reports that in February she fell landing directly onto the right knee causing pain. Subsequently, the patient reports several minor repeat knee injuries to the right knee since. She describes episodes of giving out and hyperextension. She has not had any treatment other than presenting to the ED on [id number] where x-rays were obtained and were negative for any acute fracture dislocation. While the office today, the patient was fit for a Ravi Pull knee brace off the shelf. Additionally I have recommended physical therapy and the issue patient will attend. I would like to see her back in 6 weeks after physical therapy. If physical therapy does not offer any relief the next step would be an MRI to further evaluate the integrity of the right knee and surrounding structures. She will follow up in 6 weeks, sooner if needed. X-rays obtained on [id number] in the emergency department were reviewed by me today and are negative for any acute fracture dislocation. Coding Level of Care Code New Pt Level 4 (82969) Diagnoses Contusion of right knee S80.01XA
[2024-06-02 10:04] VITALS: BMI 33.4
--- OUTSIDE RECORDS SUMMARY | 2024-06-02 10:14 | XMS_ITS | Clinical Summary ---
Author Organization [facility] Address [address] [place] [address] Care Team Providers Care Telephone Recorder Name Role Phone Unavailable Primary Care Provider Unavailabl e Social History Tobacco Use Types Packs/Day Years Used Date Smoking Tobacco: Never Assessed Comments Unknown Sex and Gender Information Value Date Recorded Sex Assigned at Not on file Legal Sex Female 4:54 AM EST Gender Identity Not on file Sexual Orientation Not on file Plan of Treatment Health Maintenance Due Date Last Done Comments HPV Vaccines (1 - 3-dose series) 2013 Hepatitis B Vaccines (1 of 3 - 19+ 3-dose series) 2017 Cervical Cancer Screening: P ap Smear 12/29/2019 Depression Screening 03/23/2022 HIV Screening 03/23/2022 Hepatitis C Screening 03/23/2022 Social Influencers of Health Screening 03/23/2022 COVID-19 Vaccine ( - 2023-2 5 season) 2023 Influenza Vaccine (#1) 2023 DTaP,Tdap,and Td Vaccines (2 - Td or Tdap) 05/03/2029 05/03/2019 MMR Vaccines Aged Out 05/05/2019 No longer eligi ble based on patient's age to complete this topic Varicella Vaccines Aged Out 05/05/2019 No longer eligible based on patient's age to complete this topic HIB Vaccines Aged Out No longer eligi ble based on patient's age to complete this topic Hepatitis A Vaccines Aged Out No long er eligible based on patient's age to complete this topic IPV Vaccines Aged Out No longer eligi ble based on patient's age to complete this topic Meningococcal ACWY Vaccine Aged Out N o longer eligible based on patient's age to complete this topic Meningococcal B Vacine Aged Out No lo nger eligible based on patient's age to complete this topic Pneumococcal Vaccine: Pediat rics (0 to 5 Years) and At-Risk Patients (6 to 64 Years) Aged Out No longer eligi ble based on patient's age to complete this topic RSV Immunization Patients Un josé luis 20 months Aged Out No longer eligible b ased on patient's age to complete this topic
== END 2024-06-02 10:27 | disposition home or self-care (01) ==
PROVIDERS: PCP Nurse Practitioner Family; Visit Provider Physician Assistant
DX: S80.01XA Contusion of right knee, initial encounter (principal)
CPT/HCPCS: 99204